=== PATIENT | male | born 1950 | race Caucasian/White ===

== ENCOUNTER 2024-08-30 09:27 | Inpatient (IN) | payer MEDICARE, MEDICAID, SELFPAY ==
[2024-08-30] VITALS (13 sets, daily range): BP systolic 89–126; BP diastolic 62–87; PULSE 98–123; RESP 18–23; TEMP 36.5–38.3; O2SAT 94–98; BMI 33.5; BMI 34.4
--- NOTE | 2024-08-30 09:40 | PC.NURSE ---
Patient to er via ems from [facility] with c/o n/vomiting since last pm, weakness. Currently patient alert and oriented x 3, GCS 15, skin warm dry and pink, patient denies abd. pain. Abd. soft, slight tenderness to left mid abd, chart up to be seen by er provider.
--- NOTE | 2024-08-30 09:48 | PD.EDADULT ---
ED General RME/HPI General Chief complaint: Nausea/Vomiting/Diarrhea Stated complaint: NAUSEA & VOMITING Time Seen by Provider: 08/30/24 09:46 Arrival date/time: 08/30/24 09:27 Limitations: no limitations RME / HPI RME / HPI narrative: DR. STROUD MAIN ED EVALUATION: 74 year old male with past medical history significant for sut-cxivagl-pmtlknilx diabetes mellitus (NIDDM), peripheral neuropathy, dementia, obesity, CAD s/p CABG from [facility], presents to the Emergency Department BIBA with complaints of nausea and vomiting onset yesterday. He has no particular complaints. He has limited history due to dementia. Related Data Home Medications ?Medication ?Instructions ?Recorded ?Confirmed carvedilol 3.125 mg tablet 3.125 mg PO BID 06/11/19 08/30/24 brimonidine 0.1 % eye drops 1 drp ophthalmic (eye) BID 02/25/22 08/30/24 (Alphagan P) duloxetine 30 mg capsule,delayed 30 mg PO QDAY 02/25/22 08/30/24 release (Cymbalta) latanoprost 0.005 % eye drops 1 drp ophthalmic (eye) QPM 02/25/22 08/30/24 sitagliptin phosphate 100 mg 100 mg PO QDAY 02/25/22 08/30/24 tablet (Januvia) timolol maleate 0.5 % eye drops 1 drp ophthalmic (eye) BID 02/25/22 08/31/24 metformin 1,000 mg tablet 1 tab PO BID 06/05/22 08/30/24 acetaminophen 325 mg tablet 325 mg PO Q6HR PRN Pain (Scale 10/02/22 08/31/24 (Tylenol) Score 1-3) aspirin 325 mg tablet 325 mg PO QDAY 10/02/22 08/30/24 bisacodyl 10 mg rectal suppository 10 mg ND QDAY PRN Constipation 10/02/22 08/31/24 (Dulcolax (bisacodyl)) docusate sodium 250 mg capsule 250 mg PO QDAY 10/02/22 08/30/24 gabapentin 800 mg tablet 800 mg PO TID 10/02/22 08/30/24 (Neurontin) hydrocodone 10 mg-acetaminophen 1 tab PO Q6H PRN Pain (Scale Score 10/02/22 08/30/24 325 mg tablet 4-6) hydroxyzine HCl 25 mg tablet 12.5 mg PO Q6H PRN Itching 10/02/22 08/30/24 magnesium hydroxide 400 mg/5 mL 30 ml PO Q72H PRN Constipation 10/02/22 08/30/24 oral suspension (Milk of Magnesia) ondansetron 4 mg disintegrating 4 mg PO Q6H PRN Nausea 10/02/22 08/31/24 tablet rosuvastatin 20 mg tablet 20 mg PO HS 10/02/22 08/31/24 sodium phosphates 19 gram-7 118 ml ND QDAY PRN Constipation 10/02/22 08/31/24 gram/118 mL enema (Fleet Enema) Previous Rx's ?Medication ?Instructions ?Recorded finasteride 5 mg tablet 5 mg PO QDAY #30 tabs 10/04/22 tamsulosin 0.4 mg capsule (Flomax) 0.4 mg PO QDAY #30 caps 10/04/22 Allergies Allergy/AdvReac Type Severity Reaction Status Date / Time No Known Allergies Allergy Verified 11/22/23 09:58 Review of Systems Review of Systems Systems Reviewed: All systems reviewed, normal except as documented Narrative Review of Systems: GEN: No fever, no chills, no weight loss EYES: No discharge, no visual changes, no pain HEENT: No ear pain, no congestion, no sore throat PULM: No shortness of breath, no cough, no congestion CV: No chest pain, no dyspnea on exertion, no palpitations GI: + nausea, + vomiting, no diarrhea, no pain, no constipation : No frequency, no urgency and no dysuria MUSC/SKEL: No joint pain, no back pain SKIN: No rash PSYCH: No hallucinations, no depression HEME/LYMPH: No easy bleeding or bruising tendencies NEURO: No weakness, no headache Past Medical History Past Medical History NEUROLOGIC: Positive Neurological Disorders and Peripheral Neuropathy CARDIAC: Positive Cardiac Disorders, Myocardial Infarction, Angina, Hypercholesterolemia and Hypertension MUSCULOSKELETAL: Positive Musculoskeletal Disorders, Arthritis and Degenerative Joint Disease ENT: Positive Glaucoma and Blind ENDOCRINE: Positive Endocrine Disorders and Diabetes Mellitus Type 2 (type 2) OTHER HISTORY: Positive Hospitalization, Chicken Pox and Measles Family History FAMILY HISTORY: Positive Family Cardiac Disorders and Family Cancer Surgical History SURGICAL: Positive Cardiac Surgery and Coronary Artery Bypass Graft Social History SMOKING STATUS: Never smoker SECOND HAND EXPOSURE: No SUBSTANCE USE: does not use ALCOHOL: Never ED Exam General Limitations: Present no limitations General appearance: Present alert, in no apparent distress and other (nontoxic, he is chronically ill, bedbound, with some atrophic contractions in his extremities) Head Head exam: Present atraumatic, normocephalic and normal inspection Eye Eye exam: Present normal appearance, PERRL and EOMI ENT ENT exam: Present normal oropharynx and mucous membranes dry Neck Neck exam: Present normal inspection, full ROM and trachea midline Chest Chest inspection: Present normal inspection and symmetric chest wall rise Respiratory Respiratory exam: Present normal lung sounds bilaterally Cardiovascular Cardiovascular exam: Present regular rate, normal rhythm and normal heart sounds Abdominal Exam Abdominal exam: Present soft, tenderness (mild diffuse, abdominal tenderness) and normal bowel sounds; Absent guarding or rebound Extremities Exam Extremities exam: Present other (bedbound, with some atrophic contractions in his extremities) Back Exam Back exam: Present normal inspection Neurological Exam Neurological exam: Present alert (at baseline) Psychiatric Psychiatric exam: Present normal affect and normal mood Skin Skin exam: Present warm, dry, intact and normal color Course Quality Measures Current suspected stage: severe sepsis Possible source: other (multi organ see below) Blood cultures ordered: yes Antibiotic ordered: Yes Pertinent labs: 08/30/24 10:00 Lactic Acid 1.7 mMol/L (0.4-2.0) Procalcitonin 8.57 H ng/ml (0.0-0.49) Severe sepsis due to multi organ injury, including his elevated, troponin for cardiac injury, elevated creatinine for renal injury. 0955: Sepsis alert initiated. Orders made at this time are congruent with ED Adult Sepsis Order List. Re-evaluation is to be completed. 1107: Fluids and antibiotics started. 1140: Sepsis reassessment performed consisting of lab review, vitals, physical exam including auscultation of heart, lungs, and visual evaluation of capillary refills, mucosal membranes and extremities. sepsis Orders Category Date Time Status Bedside COVID-19 Antigen Test NOW Care 08/30/24 09:53 Active Bedside Influenza A&B Antigen Test NOW Care 08/30/24 09:[address] Screening NOW Care 08/30/24 10:54 Active EKG (ED ONLY) *Do not use* NOW Care 08/30/24 09:54 Completed In and Out Catheter X1 Care 08/30/24 10:03 Completed Consult to Cardiology Stat Cons 11/17/24 12:[address] chest abdomen pelvis w Stat Exams 08/30/24 10:54 Completed EKG (ED Only) Stat Exams 08/30/24 09:54 Draft XR chest 1V Stat Exams 08/30/24 09:54 Completed Blood Culture (Lab) Stat Lab 08/30/24 10:08 Results CBC Stat Lab 08/30/24 10:00 Completed CMP [Comprehensive Metabolic Panel] Stat Lab 08/30/24 10:00 Completed Lactate (Lactic Acid) Stat Lab 08/30/24 10:00 Completed Procalcitonin Stat Lab 08/30/24 10:00 Completed RSV [Respiratory Syncytial Virus Ag] Stat Lab 08/30/24 11:45 Completed Troponin I Stat Lab 08/30/24 10:00 Completed Troponin I Stat Lab 08/30/24 12:30 Completed Urinalysis Stat Lab 08/30/24 10:10 Completed Acetaminophen Tab [Tylenol Tab] Med 08/30/24 10:19 Discontinued 650 mg PO X1 ONE Insulin Regular Med 08/30/24 10:57 Discontinued 10 unit SC X1 ONE Ondansetron Inj [Zofran Inj] Med 08/30/24 09:52 Discontinued 4 mg IV X1 ONE Piper/Tazo 3.375 gm [Zosyn] Med 08/30/24 10:53 Discontinued 3.375 gm in 50 ml IV X1 Sodium Chloride 0.9% 1000 ml [Ns] 1,000 ml Med 08/30/24 09:52 Discontinued IV 999 mls/hr Sodium Chloride 0.9% 1000 ml [Ns] 1,000 ml Med 08/30/24 10:34 Discontinued IV 999 mls/hr Sodium Chloride 0.9% 1000 ml [Ns] 1,000 ml Med 08/30/24 12:58 Discontinued IV 999 mls/hr Sodium Chloride 0.9% 500 ml [Ns] 500 ml Med 08/30/24 12:48 Discontinued IV 999 mls/hr Vital Signs Vital signs: Vital Signs Pulse Oximetry (%) 96 08/30/24 09:46 Oxygen Flow Rate 2 08/30/24 09:46 Procedures -ED EKG Interpretation #1: Date of EK08/30/24 Time of EK:10 Rate: 115 Interpretation: Interpreted by me Additional EKG comment: sinus tachycardia, rate 115, normal intervals, normal axis, no acute ST-T wave changes, no STEMI MDM Patient data External records reviewed:: [facility] previous records (Reviewed last urology note by Dr. Montalvo dated 11/24/23.) and EMS form Clinical information provided by:: patient and EMS Social determinants that could affect healthcare access:: housing ([facility]) Patient has the following chronic illnesses:: Auf-vrjhpct-awxfaphkl diabetes mellitus (NIDDM), peripheral neuropathy, dementia, obesity, CAD s/p CABG. How is presenting disease/condition affected by chronic disease/condition?: exacerbated by Evaluation data The following diagnostics were reviewed and interpreted by me:: lab results, radiology exam(s) and EKG tracing(s) Lab and/or radiology exams considered but not ordered:: none Interpretation Summary: Procedure(s): XR chest 1V Accession Number(s): [id number] cc: Erasmo Stroud MD; Mateusz Méndez MD~ Examination: AP chest single view Technique: AP portable semiupright chest single view Exam date and time: August 30, 2024 1017 hrs. Comparison October 01, 2022 Indications: Nausea vomiting beginning 3 days ago Findings: Mild enlargement cardiac contour Mild vascular congestion No lobar pneumonia no aspiration pneumonia No pulmonary edema Intact osseous structures Impression: Mild vascular congestion No aspiration pneumonia Dictated By: Mateusz Lopez MD Procedure(s): CT chest abdomen pelvis w Accession Number(s): [id number] cc: Salo Delacruz MD; Erasmo Stroud MD; Mateusz Méndez MD~ Examination: CT chest with intravenous contrast CT abdomen with intravenous contrast CT pelvis with intravenous contrast 2-D coronal and sagittal reconstructions Time of exam: September 09, 2024 1133 hrs. Indications: Chest pain shortness of breath sepsis nausea fever vomiting today Technique: Multiple axial images of the chest, abdomen and pelvis with intravenous mcontrast, 3.0 mm slice thickness. Images obtained post intravenous injection Isovue 60 cc Isovue-300 2-D sagittal and coronal reconstructions. Low dose protocols were performed. One or more of the following dose reduction techniques were used; mautomated exposure control, adjustment of the mA and/or KV according to patient size, use of iterative reconstruction technique. Findings: No thoracic aortic aneurysmal dilatation Pulmonary artery opacification is poor Heavy calcification left anterior descending coronary artery No paratracheal tracheobronchial or bronchopulmonary adenopathy Mild vascular congestion Mild pneumonia at the left base Minimal bilateral pleural fluid Fatty infiltration throughout the liver Contracted gallbladder with gallstones No splenic or pancreatic or adrenal mass Atrophic kidneys Aorta normal size No bowel obstruction No pericecal inflammatory change No diverticulitis Urinary bladder wall shows thickening and there is pericystic inflammatory change Normal seminal vesicles No significant prostatomegaly Significant osteopenia Impression: No thoracic aortic aneurysmal dilatation Mild pneumonia left base Diffuse fatty infiltration throughout the liver Cholelithiasis, negative for cholecystitis No CT findings of appendicitis bowel obstruction or diverticulitis No abdominal or pelvic abscess Dictated By: Mateusz Méndez MD Medications Medications considered but not ordered:: none Medication administrations:: Medication Administration History Acetaminophen (Acetaminophen 325 Mg Tablet) 650 mg PO Q6H PRN PRN Reason: pain 1-3 and Fever >100.4 Stop: 09/29/24 13:20 Last Admin: 08/30/24 21:41 Dose: 650 mg Documented By: WB Hydrocodone Bitart/Acetaminophen (Hydrocodone/Apap 5/325 Tablet) 1 tab PO Q4HR PRN PRN Reason: PAIN SCALE 4-10(Mod-Sev Stop: 09/04/24 13:20 Aspirin (Aspirin Ec 81 Mg Tabec) 81 mg PO QDAY RASHID Stop: 09/30/24 08:59 Last Admin: 09/01/24 08:41 Dose: 81 mg Documented By: Admin: 08/31/24 08:54 Dose: 81 mg Documented By: R Atorvastatin Calcium (Atorvastatin Calcium 20 Mg Tablet) 40 mg PO HS RASHID Stop: 09/29/24 20:59 Last Admin: 08/31/24 20:33 Dose: 40 mg Documented By: Admin: 08/30/24 21:31 Dose: 40 mg Documented By: CHRISTA Azithromycin (Azithromycin 250 Mg Tablet) 500 mg PO QDAY@1400 RASHID Stop: 09/06/24 13:59 Last Admin: 08/31/24 13:42 Dose: 500 mg Documented By: Admin: 08/30/24 14:02 Dose: 500 mg Documented By: LANETTE Dextrose (Dextrose 50%-Water Inj 50 Ml Syringe) 25 ml IV Q15MIN PRN PRN Reason: BG 50-70 responsive npo pt Stop: 09/29/24 13:20 Dextrose (Dextrose 50%-Water Inj 50 Ml Syringe) 50 ml IV Q15MIN PRN PRN Reason: BG <50 OR BG <70 & pt unresponsive Stop: 09/29/24 13:20 Glucagon (Glucagon Inj 1 Mg Vial) 1 mg IM Q15MIN PRN PRN Reason: BG <70, and no IV access Heparin Sodium/Dextrose (Heparin In D5w Ivpb) 25,000 unit in 250 mls @ 10 mls/hr IV .Q24H RASHID; Protocol Stop: 09/13/24 13:44 Last Admin: 09/01/24 06:43 Dose: 14.47 units/kg/hr, 17.131 mls/hr Documented By: CECILIO Co-signed By: ARIE Titration: 09/01/24 06:43 Dose: Infused Documented By: CECILIO Co-signed By: ARIE Titration: 09/01/24 02:23 Dose: 14.47 units/kg/hr, 17.131 mls/hr Documented By: ARIE Co-signed By: ZP Titration: 08/31/24 18:15 Dose: 14.47 units/kg/hr, 17.131 mls/hr Documented By: R Co-signed By: MICHELLE Admin: 08/31/24 11:44 Dose: 12.47 units/kg/hr, 14.763 mls/hr Documented By: CECILIO Co-signed By: DAVID Titration: 08/31/24 11:41 Dose: Infused Documented By: CECILIO Co-signed By: DAVID Titration: 08/31/24 04:20 Dose: 12.47 units/kg/hr, 14.763 mls/hr Documented By: CHRISTA Co-signed By: Titration: 08/30/24 21:34 Dose: 10.47 units/kg/hr, 12.395 mls/hr Documented By: CHRISTA Co-signed By: Admin: 08/30/24 14:39 Dose: 8.447 units/kg/hr, 10 mls/hr Documented By: LANETTE Co-signed By: EF Ceftriaxone Sodium/Dextrose (Rocephin/D5w 1gm Iv Premix) 50 mls @ 100 mls/hr IV QDAY@1400 RASHID Stop: 09/06/24 13:43 Last Admin: 08/31/24 13:43 Dose: 100 mls/hr Documented By: Infusion: 08/30/24 14:40 Dose: Infused Documented By: Admin: 08/30/24 14:03 Dose: 100 mls/hr Documented By: LANETTE Insulin Human Lispro (Insulin Lispro (Admelog) 1 Unit/0.01 Ml Unit) 0 unit SC ACHS RASHID; Protocol Stop: 09/29/24 16:59 Last Admin: 09/01/24 07:35 Dose: 2 unit Documented By: CECILIO Co-signed By: CHRISTI Admin: 08/31/24 20:39 Dose: 3 unit Documented By: ARIE Co-signed By: SANDER Admin: 08/31/24 16:33 Dose: 2 unit Documented By: CECILIO Co-signed By: PP Admin: 08/31/24 11:49 Dose: 3 unit Documented By: CECILIO Co-signed By: DAVID Admin: 08/31/24 07:44 Dose: 2 unit Documented By: CECILIO Co-signed By: DA Admin: 08/30/24 21:31 Dose: 3 unit Documented By: CHRISTA Co-signed By: Admin: 08/30/24 18:12 Dose: 4 unit Documented By: CHRISTI Co-signed By: CECILIO Ondansetron HCl (Ondansetron Inj 2 Mg/Ml Inj 2 Ml) 4 mg IV Q6H PRN; Protocol PRN Reason: NAUSEA OR VOMITING Stop: 09/29/24 13:20 Last Admin: 09/01/24 07:58 Dose: 4 mg Documented By: CECILIO Sennosides (Senna Tablet) 1 tab PO QDAY PRN; Protocol PRN Reason: constipation Stop: 09/29/24 13:20 Discontinued Medications Acetaminophen (Acetaminophen 325 Mg Tablet) 650 mg PO X1 ONE Stop: 08/30/24 10:20 Last Admin: 08/30/24 10:31 Dose: 650 mg Documented By: ARLIN Heparin Sodium (Porcine) (Heparin Sod Inj 5000 Unit/Ml Vial) 5,000 unit SC Q8HR [facility] Stop: 09/13/24 13:59 Heparin Sodium (Porcine) (Heparin Sod Inj 5000 Unit/Ml Vial) 4,000 unit IV X1 ONE; Protocol Stop: 08/30/24 13:41 Last Admin: 08/30/24 14:38 Dose: 4,000 unit Documented By: LANETTE Co-signed By: ARLIN Heparin Sodium (Porcine) (Heparin Sod Inj 5000 Unit/Ml Vial) 2,000 unit IVP X1 [facility] Stop: 08/31/24 02:00 Last Admin: 08/30/24 21:32 Dose: 2,000 unit Documented By: CHRISTA Co-signed By: Heparin Sodium (Porcine) (Heparin Sod Inj 5000 Unit/Ml Vial) 2,000 unit IVP X1 ONE Stop: 08/31/24 04:08 Last Admin: 08/31/24 04:20 Dose: 2,000 unit Documented By: CHRISTA Co-signed By: Heparin Sodium (Porcine) (Heparin Sod Inj 5000 Unit/Ml Vial) 2,000 unit IVP X1 ONE Stop: 08/31/24 18:10 Last Admin: 08/31/24 18:15 Dose: 2,000 unit Documented By: CECILIO Co-signed By: MICHELLE Sodium Chloride (Ns) 1,000 mls @ 999 mls/hr IV .Q1H1M ONE Stop: 08/30/24 10:52 Last Infusion: 08/30/24 11:28 Dose: Infused Documented By: Admin: 08/30/24 10:05 Dose: 999 mls/hr Documented By: LANETTE Sodium Chloride (Ns) 1,000 mls @ 999 mls/hr IV .Q1H1M ONE Stop: 08/30/24 11:34 Last Infusion: 08/30/24 12:30 Dose: Infused Documented By: Admin: 08/30/24 11:07 Dose: 999 mls/hr Documented By: LANETTE Piperacillin/Tazobactam/Dextrose (Zosyn) 3.375 gm in 50 mls @ 100 mls/hr IV X1 ONE Stop: 08/30/24 11:22 Last Infusion: 08/30/24 12:11 Dose: Infused Documented By: Admin: 08/30/24 11:07 Dose: 100 mls/hr Documented By: LANETTE Sodium Chloride (Ns) 500 mls @ 999 mls/hr IV .Q31M ONE Stop: 08/30/24 13:18 Last Infusion: 08/30/24 13:42 Dose: Infused Documented By: Admin: 08/30/24 12:51 Dose: 999 mls/hr Documented By: LANETTE Sodium Chloride (Ns) 1,000 mls @ 999 mls/hr IV .Q1H1M ONE Stop: 08/30/24 13:58 Last Infusion: 08/30/24 13:41 Dose: Infused Documented By: Admin: 08/30/24 13:01 Dose: 999 mls/hr Documented By: LANETTE Sodium Chloride (Ns) 1,000 mls @ 100 mls/hr IV .Q10H ONE Stop: 08/30/24 23:29 Last Admin: 08/30/24 13:46 Dose: 100 mls/hr Documented By: LNAETTE Azithromycin 500 mg/ Sodium (Chloride) 250 mls @ 250 mls/hr IV QDAY RASHID Stop: 09/06/24 13:43 Last Admin: 08/30/24 14:46 Dose: Not Given Documented By: LANETTE Non-Admin Reason: Cancelled by Provider Magnesium Sulfate (Magnesium Sulfate Ivpb) 2 gm in 50 mls @ 25 mls/hr IV X1 ONE Stop: 08/31/24 15:25 Last Admin: 08/31/24 15:11 Dose: 25 mls/hr Documented By: CECILIO Insulin Human Regular (Insulin Hum Regular 1 Unit/0.01 Ml (Per Unit)) 10 unit SC X1 ONE Stop: 08/30/24 10:58 Last Admin: 08/30/24 11:08 Dose: 10 unit Documented By: LANETTE Co-signed By: ARLIN Insulin Human Regular (Insulin Hum Regular 1 Unit/0.01 Ml (Per Unit)) 10 unit IV X1 ONE Stop: 08/30/24 14:59 Last Admin: 08/30/24 16:04 Dose: 10 unit Documented By: LANETTE Co-signed By: GM Ondansetron HCl (Ondansetron Inj 2 Mg/Ml Inj 2 Ml) 4 mg IV X1 ONE; Protocol Stop: 08/30/24 09:53 Last Admin: 08/30/24 10:05 Dose: 4 mg Documented By: LANETTE see above Consultations Consultation(s) initiated? (list below): Yes Consultation #1 (Physician, Specialty, Details): Cardiology, discussed test HPI, PMHx, lab, radiology results and/or management with Dr. Garcia. We discussed the elevated troponin and he feels it is primarily due to the sepsis, no heparin right now. Will consult an admission to the hospitalist. Time: 12:30 Consultation #2 (Physician, Specialty, Details): Discussed test HPI, PMHx, lab, radiology results and/or management with hospitalist Dr. Nielsen and team. Will admit for further evaluation and management. Accepts patient for admission. Time: 13:00 Diagnosis Differential Diagnosis ED Complaint MDM: Gastritis, GERD, peptic ulcer disease, gastroenteritis Most likely diagnosis given after review of the tests above:: As noted below. Admission Indicated Admission indicated?: indicated Explain why admission is indicated or not indicated:: Diagnoses meet admission criteria. Admission Request Was there a request for admission?: Yes Admission Attestation Admission request attestation: Discussed case with [] from Hospitalist service regarding admission. Discussed patients ED course, exam findings, labs, and radiology results. The Hospitalist [agrees,declines] to accept the patient for admission. Disposition Plan Disposition Plan: Admit Medical Decision Making Differential Diagnosis Differential Diagnosis: Gastritis, GERD, peptic ulcer disease, gastroenteritis Lab Data 09/01/24 05:35 09/01/24 05:35 Labs: Lab Results 08/30/24 08/30/24 08/30/24 Range/Units 10:00 10:10 11:45 WBC 16.5 H (3.8-10.6) Thou/mm3 RBC 4.68 (4.50-5.90) Miln/mm3 Hgb 13.9 (13.5-16.0) g/dL Hct 41.1 (41.0-53.0) % MCV 88 (80-100) fL MCH 29.7 (25.0-35.0) pg MCHC 33.8 (31.0-37.0) g/dl RDW Std Deviation 46.5 H (35.1-43.9) fL Plt Count 208 (140-440) Thou/mm3 Neut % (Auto) 88 H (37-80) % Lymph % (Auto) 5 L (10-50) % [place] % (Auto) 7 (0-12) % Eos % (Auto) 0 (0-10) % Baso % (Auto) 0 (0-2.5) % Neut # (Auto) 14.5 H (1.8-7.7) Thou/mm3 Lymph # (Auto) 0.7 L (1.0-4.8) Thou/mm3 [place] # (Auto) 1.2 H (0.0-0.8) Thou/mm3 Eos # (Auto) 0.0 (0.0-0.5) Thou/mm3 Baso # (Auto) 0.0 (0.0-0.2) Thou/mm3 Immature Gran # (Auto) 0.10 H (0.00-0.00) Thou/mm3 Absolute Nucleated RBC 0.00 (0.00-0.00) Thou/mm3 Immature Gran % 1 H (0-0) % Nucleated RBC % 0 (0) /100 WBC PT 12.4 H (9.0-12.2) Seconds INR 1.1 (0.9-1.3) APTT 33.3 (22.0-36.0) Seconds Sodium 133 L (136-145) mMol/L Potassium 5.1 (3.4-5.1) mMol/L Chloride 102 (98-107) mMol/L Carbon Dioxide 23.9 (20.0-31.0) mMol/L Anion Gap 7 (7-16) BUN 29 H (9-23) mg/dL Creatinine 1.6 H (0.6-1.3) mg/dL Estim Creat Clear Calc 57.1 L (>60) mL/min eGFR 45 L (60 - ) See Note BUN/Creatinine Ratio 18 (12-20) Ratio Glucose 460 H* (74-106) mg/dL Calculated Osmolality 292 (275-295) Lactic Acid 1.7 (0.4-2.0) mMol/L Calcium 9.3 (8.3-10.6) mg/dL Corrected Calcium 9.3 (8.5-10.1) mg/dL Total Bilirubin 0.8 (0.3-1.2) mg/dL AST 23 (0-34) U/L ALT 7 L (10-49) U/L Alkaline Phosphatase 81 (46-116) U/L Troponin I 3.955 H* (0.0-0.045) ng/mL Total Protein 7.5 (5.7-8.2) gm/dL Albumin 4.2 (3.4-4.8) gm/dL Globulin 3.3 (2.3-3.5) gm/dL Albumin/Globulin Ratio 1.3 (1.2-2.2) Procalcitonin 8.57 H (0.0-0.49) ng/ml Ur Collection Type Catheter Urine Color Yellow (Lt Yel-Yel) Urine Clarity Turbid A (Clear/Hazy) Urine pH 6.0 (5.0-7.0) Ur Specific [place] 1.020 (1.001-1.035) Urine Protein 2+ A (Neg - Trace) Urine Glucose (UA) 4+ A (Negative) Urine Ketones 1+ A (Negative) Urine Blood 2+ A (Negative) Urine Nitrite Negative (Negative) Urine Bilirubin Negative (Negative) Urine Urobilinogen (Auto) 3.0 (0.0-1.0) mg/dL Ur Leukocyte Esterase Positive (Negative) Urine RBC 20 H (0-3) /hpf Urine WBC 528 H (0-5) /hpf Ur Squamous Epith Cells 1 (0-5) /hpf Amorphous Crystals Present A (Absent) Urine Bacteria 4+ A (None) RSV Rapid Negative (Negative) 08/30/24 Range/Units 12:30 WBC (3.8-10.6) Thou/mm3 RBC (4.50-5.90) Miln/mm3 Hgb (13.5-16.0) g/dL Hct (41.0-53.0) % MCV (80-100) fL MCH (25.0-35.0) pg MCHC (31.0-37.0) g/dl RDW Std Deviation (35.1-43.9) fL Plt Count (140-440) Thou/mm3 Neut % (Auto) (37-80) % Lymph % (Auto) (10-50) % [place] % (Auto) (0-12) % Eos % (Auto) (0-10) % Baso % (Auto) (0-2.5) % Neut # (Auto) (1.8-7.7) Thou/mm3 Lymph # (Auto) (1.0-4.8) Thou/mm3 [place] # (Auto) (0.0-0.8) Thou/mm3 Eos # (Auto) (0.0-0.5) Thou/mm3 Baso # (Auto) (0.0-0.2) Thou/mm3 Immature Gran # (Auto) (0.00-0.00) Thou/mm3 Absolute Nucleated RBC (0.00-0.00) Thou/mm3 Immature Gran % (0-0) % Nucleated RBC % (0) /100 WBC PT (9.0-12.2) Seconds INR (0.9-1.3) APTT (22.0-36.0) Seconds Sodium (136-145) mMol/L Potassium (3.4-5.1) mMol/L Chloride (98-107) mMol/L Carbon Dioxide (20.0-31.0) mMol/L Anion Gap (7-16) BUN (9-23) mg/dL Creatinine (0.6-1.3) mg/dL Estim Creat Clear Calc (>60) mL/min eGFR (60 - ) See Note BUN/Creatinine Ratio (12-20) Ratio Glucose (74-106) mg/dL Calculated Osmolality (275-295) Lactic Acid (0.4-2.0) mMol/L Calcium (8.3-10.6) mg/dL Corrected Calcium (8.5-10.1) mg/dL Total Bilirubin (0.3-1.2) mg/dL AST (0-34) U/L ALT (10-49) U/L Alkaline Phosphatase (46-116) U/L Troponin I 8.562 H* D (0.0-0.045) ng/mL Total Protein (5.7-8.2) gm/dL Albumin (3.4-4.8) gm/dL Globulin (2.3-3.5) gm/dL Albumin/Globulin Ratio (1.2-2.2) Procalcitonin (0.0-0.49) ng/ml Ur Collection Type Urine Color (Lt Yel-Yel) Urine Clarity (Clear/Hazy) Urine pH (5.0-7.0) Ur Specific [place] (1.001-1.035) Urine Protein (Neg - Trace) Urine Glucose (UA) (Negative) Urine Ketones (Negative) Urine Blood (Negative) Urine Nitrite (Negative) Urine Bilirubin (Negative) Urine Urobilinogen (Auto) (0.0-1.0) mg/dL Ur Leukocyte Esterase (Negative) Urine RBC (0-3) /hpf Urine WBC (0-5) /hpf Ur Squamous Epith Cells (0-5) /hpf Amorphous Crystals (Absent) Urine Bacteria (None) RSV Rapid (Negative) Critical Care Time Critical Care Time Critical Care Time: Yes Total Critical Care Time (min.): 60 Attestation: The high probability of sudden, clinically significant deterioration in the patient?s condition required the highest level of my preparedness to intervene urgently. The services I provided to this patient were to treat and/or prevent clinically significant deterioration. Services included the following: chart data review, reviewing nursing notes and/or old charts, documentation time, cycle consultant collaboration regarding findings and treatment options, medication orders and management, direct patient care, vital sign assessments and ordering, interpreting and reviewing diagnostic studies and lab tests. Aggregate critical care time includes only time during which I was engaged in work directly related to the patient?s care, as described above, whether at bedside or elsewhere in the Emergency Department. It did not include time spent performing other reported procedures or the services of residents, students, nurses or physician assistants. Discharge Plan Plan Patient Disposition: Admit Acute Care w/in Hospital Problem List Clinical Impression: Acute UTI
--- NOTE | 2024-08-30 09:52 | PC.NURSE ---
Dr. Villa at bedside.
--- NOTE | 2024-08-30 09:54 | EKG_ITS ---
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1950 Requested By: Erasmo Villa Order Number: [id number] Reading MD: Erasmo Villa Measurements Intervals [place] Rate: 115 P: 59 NE: 203 QRS: -31 QRSD: 94 T: 97 QT: 357 QTc: 495 Interpretive Statements SINUS TACHYCARDIA LOW QRS VOLTAGE IN PRECORDIAL LEADS [QRS DEFLECTION < 1.0 mV IN CHEST LEADS] POSSIBLE ANTERIOR MYOCARDIAL INFARCTION , OF INDETERMINATE AGE [30 ms Q WAVE IN V3/V4, OR R < 0.2 mV IN V4] INFERIOR MYOCARDIAL INFARCTION , OF INDETERMINATE AGE [40+ ms Q WAVE AND/OR ST/T ABNORMALITY IN II/aVF] Compared to ECG 06/04/2022 16:46:51 Sinus rhythm no longer present Myocardial infarct finding still present /store/S0/[id number]
--- NOTE | 2024-08-30 09:54 | XR_ITS ---
Examination: AP chest single view Technique: AP portable semiupright chest single view Exam date and time: August 30, 2024 1017 hrs. Comparison October 01, 2022 Indications: Nausea vomiting beginning 3 days ago Findings: Mild enlargement cardiac contour Mild vascular congestion No lobar pneumonia no aspiration pneumonia No pulmonary edema Intact osseous structures Impression: Mild vascular congestion No aspiration pneumonia
[2024-08-30] MEDS: ONDANSETRON INJ 2 MG/ML INJ 2 ML 4 MG IV (10:05)
[2024-08-30] MEDS: SODIUM CHLORIDE 0.9% 1000 ML 1,000 ML 999 ML IV ×3 (10:05→13:01)
[2024-08-30 10:15] LABS: Lactate (Lactic Acid) 1.7 mMol/L (0.4-2.0)
[2024-08-30 10:18] LABS: Basophils % (Auto) 0 % (0-2.5); Eosinophils % (Auto) 0 % (0-10); Hematocrit 41.1 % (41.0-53.0); Hemoglobin 13.9 g/dL (13.5-16.0); Immature Granulocytes % (Auto) 1 % (0-0); Lymphocytes # (Auto) 0.7 Thou/mm3 (1.0-4.8); Lymphocytes % (Auto) 5 % (10-50); Mean Corpuscular HGB Conc 33.8 g/dl (31.0-37.0); Mean Corpuscular Hemoglobin 29.7 pg (25.0-35.0); Mean Corpuscular Volume 88 fL (80-100); Monocytes # (Auto) 1.2 Thou/mm3 (0.0-0.8); Monocytes % (Auto) 7 % (0-12); Neutrophils # (Auto) 14.5 Thou/mm3 (1.8-7.7); Neutrophils % (Auto) 88 % (37-80); Nucleated Red Blood Cell % 0 /100 WBC (0); Platelet Count 208 Thou/mm3 (140-440); RDW Standard Deviation 46.5 fL (35.1-43.9); Red Blood Count 4.68 Miln/mm3 (4.50-5.90); White Blood Count 16.5 Thou/mm3 (3.8-10.6)
[2024-08-30 10:22] LABS: Collection Type, Urine Catheter
[2024-08-30] MEDS: ACETAMINOPHEN 325 MG TABLET 650 MG PO ×2 (10:31→21:41)
[2024-08-30 10:40] LABS: Amorphous Crystals,Urine Present (Absent); Bacteria,Urine 4+; Bilirubin,Urine Negative (Negative); Blood,Urine 2+ (Negative); Clarity,Urine Turbid (Clear/Hazy); Color,Urine Yellow (Lt Yel-Yel); Glucose, Urine 4+ (Negative); Ketones,Urine 1+ (Negative); Leukocyte Esterase,Urine Positive (Negative); Nitrite,Urine Negative (Negative); Protein,Urine 2+ (Neg - Trace); RBC,Urine 20 /hpf (0-3); Squamous Epithelial Cell,Urine 1 /hpf (0-5); WBC,Urine 528 /hpf (0-5)
[2024-08-30 10:49] LABS: Alanine Aminotransferase 7 U/L (10-49); Albumin, Serum 4.2 gm/dL (3.4-4.8); Albumin/Globulin Ratio 1.3 (1.2-2.2); Alkaline Phosphatase 81 U/L (46-116); Anion Gap 7 (7-16); Aspartate Amino Transferase 23 U/L (0-34); BUN/Creatinine Ratio 18 Ratio (12-20); Bilirubin,Total 0.8 mg/dL (0.3-1.2); Blood Urea Nitrogen 29 mg/dL (9-23); Calcium 9.3 mg/dL (8.3-10.6); Calcium (Corrected) 9.3 mg/dL (8.5-10.1); Carbon Dioxide 23.9 mMol/L (20.0-31.0); Chloride 102 mMol/L (98-107); Creatinine (Component) 1.6 mg/dL (0.6-1.3); Estimated Creatinine Clearance 57.1 mL/min (>60); Globulin 3.3 gm/dL (2.3-3.5); Osmolality,Calculated 292 (275-295); Potassium 5.1 mMol/L (3.4-5.1); Procalcitonin 8.57 ng/ml (0.0-0.49); Sodium 133 mMol/L (136-145); Total Protein 7.5 gm/dL (5.7-8.2); eGFR 45 See Note
[2024-08-30 10:50] LABS: Troponin I 3.955 ng/mL (0.0-0.045)
[2024-08-30 10:51] LABS: Glucose 460 mg/dL (74-106)
--- NOTE | 2024-08-30 10:54 | XR_ITS ---
Examination: CT chest with intravenous contrast CT abdomen with intravenous contrast CT pelvis with intravenous contrast 2-D coronal and sagittal reconstructions Time of exam: September 09, 2024 1133 hrs. Indications: Chest pain shortness of breath sepsis nausea fever vomiting today CTDI: vol (mGy) : 20.4 DLP: (mGycm): 1597 Technique: Multiple axial images of the chest, abdomen and pelvis with intravenous contrast, 3.0 mm slice thickness. Images obtained post intravenous injection Isovue 60 cc Isovue-300 2-D sagittal and coronal reconstructions. Low dose protocols were performed. One or more of the following dose reduction techniques were used; automated exposure control, adjustment of the mA and/or KV according to patient size, use of iterative reconstruction technique. Findings: No thoracic aortic aneurysmal dilatation Pulmonary artery opacification is poor Heavy calcification left anterior descending coronary artery No paratracheal tracheobronchial or bronchopulmonary adenopathy Mild vascular congestion Mild pneumonia at the left base Minimal bilateral pleural fluid Fatty infiltration throughout the liver Contracted gallbladder with gallstones No splenic or pancreatic or adrenal mass Atrophic kidneys Aorta normal size No bowel obstruction No pericecal inflammatory change No diverticulitis Urinary bladder wall shows thickening and there is pericystic inflammatory change Normal seminal vesicles No significant prostatomegaly Significant osteopenia Impression: No thoracic aortic aneurysmal dilatation Mild pneumonia left base Diffuse fatty infiltration throughout the liver Cholelithiasis, negative for cholecystitis No CT findings of appendicitis bowel obstruction or diverticulitis No abdominal or pelvic abscess
[2024-08-30] MEDS: PIPER/TAZO 3.375 GM 3.375 GM/50 ML BAG IV (11:07)
[2024-08-30] MEDS: INSULIN HUM REGULAR 1 UNIT/0.01 ML (PER UNIT) 10 UNIT SC (11:08)
--- NOTE | 2024-08-30 11:32 | PC.NURSE ---
Patient gone to ct via michi on with tech
[2024-08-30] MEDS: SODIUM CHLORIDE 0.9% 500 ML 500 ML 999 ML IV (12:51)
--- NOTE | 2024-08-30 12:58 | PC.NURSE ---
Per Dr. Villa, Dr. Nielsen to consult for admission and Dr. Torres, ccnp will consult as well.
[2024-08-30 13:03] LABS: Respiratory Syncytial Virus Ag Negative (Negative)
[2024-08-30 13:20] LABS: Troponin I 8.562 ng/mL (0.0-0.045)
--- NOTE | 2024-08-30 13:28 | ESHP_ITS ---
<Statement entered by Len Roman MD - 08/30/24 16:20> Senior Resident Attestation: I supervised/discussed management plan with internal corrosion specialist physician Dr. Byrd, and was involved in the care of this patient. I personally saw and examined the patient and discussed the assessment and plan with the entire medicine team, including my attending. I agree with the assessment and plan as documented. Patient is 74 years old male with past medical history of type 2 diabetes, CAD s/p PCI, triple-vessel occlusive disease, hyperlipidemia, hypertension, dementia presented to the ED due to nausea and vomiting. Chest CT showed early pneumonia and UA was consistent with UTI. Patient met SIRS criteria for sepsis. Patient was given 3.5 L of IVF was admitted for further management and started on ceftriaxone and azithromycin and maintenance IV fluids. His troponin on admission was 3.9 and then went up to 8, cardiology was consulted and patient was started on heparin drip, will trend troponin. Patient's care was discussed with attending physician, Dr. Nielsen. Len Roman MD PGY-2. Documentation for date of: 08/30/24 HPI History of Present Illness Chief complaint: Nausea and vomit History of present illness: 74-year-old male with past medical history of DM2, glaucoma, triple-vessel disease (s/p stents 2019), hyperlipidemia, dementia, and hypertension was admitted to the hospital after coming to the ED from [facility] due to complaints of nausea and vomiting which started last night. On assessment patient mentioned that he vomited last night and that he has been having some subjective fever, chills and shortness of breath, but denied any chest pain, burning sensation urination, or blood in the stools. Patient did not have much complaints other than nausea and vomiting, but on assessment he did have some suprapubic tenderness yet he denied any changes in urine or burning sensation during urination. Patient was also poor historian. ED course: Initially came in tachycardic, febrile, and hypotensive. Initial labs were relevant for leukocytosis, MART, hyperglycemia, temp anemia, elevated procalcitonin, and UTI. Initial imaging included chest x-ray which did not show any pneumonia, but this showed mild vascular congestion. Additional chest/abdomen/pelvis CT showed heavy calcification of LAD, mild pneumonia of left base, minimal bilateral pleural fluid, atrophic kidneys, cholelithiasis, and urinary bladder wall thickening. EKG showed sinus tachycardia. Patient received 3.5 L boluses, one-time dose Zosyn, one-time dose acetaminophen, and 10 units of insulin in the ER. ER physician spoke with helicopter dispatcher Dr. Garcia. PMH: As above Social Hx: Denies any alcohol, smoking, drugs Meds: Medical reconciliation pending Review of Systems Review of Systems Narrative Review of Systems: Constitutional: Denies sweats, Denies weight loss/gain, Admits fever, Admits chills. HEENT: Denies hearing loss, Denies ear pain, Denies postnasal drip, Denies double vision, Denies blurry vision. Respiratory: Admits shortness of breath, Denies cough, Denies wheezing. Cardiovascular: Denies chest pain, Denies palpitations, Denies sudden loss of consciousness. GI: Denies blood in stool, Denies constipation, Denies abdominal pain, Denies difficulty swallowing, Admits nausea and vomit. : Denies urinary incontinence, Denies pain while urinating, Denies increased urinary frequency. MSK: Denies joint pain, Denies joint swelling, Denies numbness. Skin: Denies rash, Denies itching, Denies easy bruising. Neuro: Denies headaches, Denies dizziness, Denies seizures. Past Medical History Past Medical History NEUROLOGIC: Positive Neurological Disorders and Peripheral Neuropathy CARDIAC: Positive Cardiac Disorders, Myocardial Infarction, Angina, Hypercholesterolemia and Hypertension MUSCULOSKELETAL: Positive Musculoskeletal Disorders, Arthritis and Degenerative Joint Disease ENT: Positive Glaucoma and Blind ENDOCRINE: Positive Endocrine Disorders and Diabetes Mellitus Type 2 (type 2) OTHER HISTORY: Positive Hospitalization, Chicken Pox and Measles Family History FAMILY HISTORY: Positive Family Cardiac Disorders and Family Cancer Surgical History SURGICAL: Positive Cardiac Surgery and Coronary Artery Bypass Graft Social History SMOKING STATUS: Never smoker SECOND HAND EXPOSURE: No SUBSTANCE USE: does not use ALCOHOL: Never Exam Vital Signs Temp Pulse Resp BP Pulse Ox O2 Del Method O2 Flow Rate 98.4 F 100 23 H 89/62 L 98 Room Air 2 08/30/24 11:31 08/30/24 12:30 08/30/24 12:30 08/30/24 12:30 08/30/24 12:30 08/30/24 12:30 08/30/24 11:31 Narrative Exam General: A/O x3, no acute distress, obese Eyes: PERRL, EOMI. Anicteric, vision impaired. Ears: No ear pain, no ear discharge, Hearing grossly intact. Nose: No nasal discharge. Mouth/Throat: Dry mucous membranes, no redness, no lesions. Neck: short neck , non-tender, no cervical lymphadenopathy. Lungs: Clear LUPILLO to auscultation and percussion, No accessory muscle use. Cardio: Normal S1/S2, regular rhythm, no murmurs, no JVD Abdomen: Soft, but distended, no palpable masses, peristalsis present, no guarding or rebound. Extremities: Symmetrical, no significant deformities, 1+ peripheral edema , non-tender, peripheral pulses presents. Skin: No rashes, no lesions, warm to touch. Neuro: No focal neurological deficits. able to follow commands, able to move all extremities. Strength in LUPILLO LE 3/5. Psych:flat effect Results: Labs 09/03/24 08:25 09/03/24 08:25 Labs: Short CBC 08/30/24 Range/Units 10:00 WBC 16.5 H (3.8-10.6) Thou/mm3 Hgb 13.9 (13.5-16.0) g/dL Hct 41.1 (41.0-53.0) % Plt Count 208 (140-440) Thou/mm3 BMP 08/30/24 10:00 Sodium 133 L Potassium 5.1 Chloride 102 Carbon Dioxide 23.9 BUN 29 H Creatinine 1.6 H Glucose 460 H* Calcium 9.3 Cardiac Enzymes 08/30/24 08/30/24 Range/Units 10:00 12:30 Troponin I 3.955 H* 8.562 H* D (0.0-0.045) ng/mL Liver Function 08/30/24 Range/Units 10:00 Total Bilirubin 0.8 (0.3-1.2) mg/dL AST 23 (0-34) U/L ALT 7 L (10-49) U/L Alkaline Phosphatase 81 (46-116) U/L Albumin 4.2 (3.4-4.8) gm/dL Urine 08/30/24 Range/Units 10:10 Urine Color Yellow (Lt Yel-Yel) Urine Clarity Turbid A (Clear/Hazy) Urine pH 6.0 (5.0-7.0) Ur Specific [place] 1.020 (1.001-1.035) Urine Protein 2+ A (Neg - Trace) Urine Glucose (UA) 4+ A (Negative) Quality Measures Quality Measures sepsis Current suspected stage: sepsis Possible source: other (multi organ see below) Blood cultures ordered: yes Antibiotic ordered: Yes Advance care planning discussed with:: patient Medications Home Medications and Allergies Home Medications ?Medication ?Instructions ?Recorded ?Confirmed ?Type brimonidine 0.1 % eye drops 1 drp ophthalmic (eye) BID 02/25/22 08/30/24 History (Alphagan P) duloxetine 30 mg capsule,delayed 30 mg PO QDAY 02/25/22 08/30/24 History release (Cymbalta) latanoprost 0.005 % eye drops 1 drp ophthalmic (eye) QPM 02/25/22 08/30/24 History sitagliptin phosphate 100 mg 100 mg PO QDAY 02/25/22 08/30/24 History tablet (Januvia) timolol maleate 0.5 % eye drops 1 drp ophthalmic (eye) BID 02/25/22 08/31/24 History metformin 1,000 mg tablet 1 tab PO BID 06/05/22 08/30/24 History acetaminophen 325 mg tablet 325 mg PO Q6HR PRN Pain (Scale 10/02/22 08/31/24 History (Tylenol) Score 1-3) bisacodyl 10 mg rectal suppository 10 mg DC QDAY PRN Constipation 10/02/22 08/31/24 History (Dulcolax (bisacodyl)) docusate sodium 250 mg capsule 250 mg PO QDAY 10/02/22 08/30/24 History gabapentin 800 mg tablet 800 mg PO TID 10/02/22 08/30/24 History (Neurontin) hydrocodone 10 mg-acetaminophen 1 tab PO Q6H PRN Pain (Scale Score 10/02/22 08/30/24 History 325 mg tablet 4-6) hydroxyzine HCl 25 mg tablet 12.5 mg PO Q6H PRN Itching 10/02/22 08/30/24 History magnesium hydroxide 400 mg/5 mL 30 ml PO Q72H PRN Constipation 10/02/22 08/30/24 History oral suspension (Milk of Magnesia) ondansetron 4 mg disintegrating 4 mg PO Q6H PRN Nausea 10/02/22 08/31/24 History tablet sodium phosphates 19 gram-7 118 ml DC QDAY PRN Constipation 10/02/22 08/31/24 History gram/118 mL enema (Fleet Enema) Allergies Allergy/AdvReac Type Severity Reaction Status Date / Time No Known Allergies Allergy Verified 11/22/23 09:58 Visit Medications Acetaminophen (Acetaminophen 325 Mg Tablet) 650 mg PO Q6H PRN PRN Reason: paind and Fever >100.4 Stop: 09/29/24 13:20 Hydrocodone Bitart/Acetaminophen (Hydrocodone/Apap 5/325 Tablet) 1 tab PO Q4HR PRN PRN Reason: PAIN SCALE 4-10(Mod-Sev Stop: 09/04/24 13:20 Atorvastatin Calcium (Atorvastatin Calcium 20 Mg Tablet) 40 mg PO HS RASHID Stop: 09/29/24 20:59 Dextrose (Dextrose 50%-Water Inj 50 Ml Syringe) 25 ml IV Q15MIN PRN PRN Reason: BG 50-70 responsive npo pt Stop: 09/29/24 13:20 Dextrose (Dextrose 50%-Water Inj 50 Ml Syringe) 50 ml IV Q15MIN PRN PRN Reason: BG <50 OR BG <70 & pt unresponsive Stop: 09/29/24 13:20 Glucagon (Glucagon Inj 1 Mg Vial) 1 mg IM Q15MIN PRN PRN Reason: BG <70, and no IV access Heparin Sodium (Porcine) (Heparin Sod Inj 5000 Unit/Ml Vial) 5,000 unit SC Q8HR RASHID Stop: 09/13/24 13:59 Sodium Chloride (Ns) 1,000 mls @ 999 mls/hr IV .Q1H1M ONE Stop: 08/30/24 13:58 Last Admin: 08/30/24 13:01 Dose: 999 mls/hr Sodium Chloride (Ns) 1,000 mls @ 100 mls/hr IV .Q10H RASHID Stop: 09/29/24 13:29 Insulin Human Lispro (Insulin Lispro (Admelog) 1 Unit/0.01 Ml Unit) 0 unit SC ACHS [facility]; Protocol Stop: 09/29/24 16:59 Ondansetron HCl (Ondansetron Inj 2 Mg/Ml Inj 2 Ml) 4 mg IV Q6H PRN; Protocol PRN Reason: NAUSEA OR VOMITING Stop: 09/29/24 13:20 Sennosides (Senna Tablet) 1 tab PO QDAY PRN; Protocol PRN Reason: constipation Stop: 09/29/24 13:20 Discontinued Medications Acetaminophen (Acetaminophen 325 Mg Tablet) 650 mg PO X1 ONE Stop: 08/30/24 10:20 Last Admin: 08/30/24 10:31 Dose: 650 mg Sodium Chloride (Ns) 1,000 mls @ 999 mls/hr IV .Q1H1M ONE Stop: 08/30/24 10:52 Last Infusion: 08/30/24 11:28 Dose: Infused Sodium Chloride (Ns) 1,000 mls @ 999 mls/hr IV .Q1H1M ONE Stop: 08/30/24 11:34 Last Infusion: 08/30/24 12:30 Dose: Infused Piperacillin/Tazobactam/Dextrose (Zosyn) 3.375 gm in 50 mls @ 100 mls/hr IV X1 ONE Stop: 08/30/24 11:22 Last Infusion: 08/30/24 12:11 Dose: Infused Sodium Chloride (Ns) 500 mls @ 999 mls/hr IV .Q31M ONE Stop: 08/30/24 13:18 Last Admin: 08/30/24 12:51 Dose: 999 mls/hr Insulin Human Regular (Insulin Hum Regular 1 Unit/0.01 Ml (Per Unit)) 10 unit SC X1 ONE Stop: 08/30/24 10:58 Last Admin: 08/30/24 11:08 Dose: 10 unit Ondansetron HCl (Ondansetron Inj 2 Mg/Ml Inj 2 Ml) 4 mg IV X1 ONE; Protocol Stop: 08/30/24 09:53 Last Admin: 08/30/24 10:05 Dose: 4 mg Assessment & Plan Plan 74-year-old male with past medical history of DM2, glaucoma, triple-vessel disease (s/p stents 2018), hyperlipidemia, dementia, and hypertension was admitted to the hospital on 08/30/2024 for sepsis secondary to UTI versus community-acquired pneumonia, NSTEMI type I versus type II, and MART. #Sepsis secondary to UTI versus community-acquired pneumonia #UTI #Community-acquired pneumonia ?Patient initially came in with complaints of nausea and vomiting, but was found to have fever, leukocytosis and UTI on urinalysis. ?Patient met SIRS criteria 3 out of 4 with tachycardia, leukocytosis, and fever. ?DDx sepsis likely secondary to UTI given positive UA versus community-acquired pneumonia as CT showed some left base pneumonia ?Chest x-ray did not show any pneumonia ? CT chest/abdomen/pelvis showed mild pneumonia of left base ? UA was positive for bacteria and leukocyte esterase ?WBC 16.5 on admission ?Procalcitonin 8.57 and lactic acid 1.7 on admission ?3.5 L bolus and Zosyn in ED Plan: ?Start Rocephin 1 g daily and azithromycin 500 mg daily [08/30/2024?] ?IV fluids at 100 mL/h ?Will continue to monitor #NSTEMI type I versus type II? #Hx of triple-vessel disease (s/p stents 2019) #Hx of HLD ?Patient denies any chest pain on admission ?Initial troponin was 3.955 and up trended to 8.562 ?DDx type II given patient is septic and most likely experiencing demand ischemia versus type I given risk factors ?EKG did not show any ST changes Plan: ? Started heparin drip [08/30/2024?] ?Started aspirin and atorvastatin ?Trend troponins ?Cardiology consulted (Dr. Garcia), recommended to start heparin drip. ?Will continue to monitor #MART ?DDx prerenal given patient is septic versus intrarenal given patient is having a UTI which could be extending to the kidneys ?Base creatinine 1.1 ?creatinine today 1.6 Plan: ?IV fluids ?Avoid nephrotoxic agents ?Renally dose medication ?Will continue to monitor #Hx of DM2 ?Blood glucose 460 on admission ?10 units insulin in the ED Plan: -10 units x1 again ?ISS ?Accu-Cheks and hypoglycemic protocol ?A1c ordered for tomorrow ?Will continue to monitor #Hx of HTN ?Patient's blood pressure has been low in the ED, but has maintained a MAP above 65 and therefore not indicating any active septic shock. ?Holding antihypertensive medications given patient is septic at this time. #Hx of dementia ?Will resume home medications after med reconciliation. Disposition: Patient admitted to telemetry, trending trops, heparin drip, IV antibiotics. Diet: Cardiac/low carb GI prophylaxis: not indicated DVT prophylaxis: On heparin drip Code: Full code Case disclosed with Attending Dr. Nielsen and My senior Dr. Roman PGY2. Anand Morgan PGY1 Attending Provider Attestation/Addendum 74-year-old male with history of type 2 diabetes mellitus, hypertension, hyperlipidemia with subsequent CAD status post stent placement presented to the ER with nausea and vomiting found to have sepsis secondary to UTI and noted to have elevation in troponin with a peak of 8 and thus started on a heparin, aspirin, atorvastatin and pending cardiology input. Plan to continue monitoring the patient in telemetry and consult cardiology. I reviewed above note and agree with findings and plans. I have also personally examined the patient with medicine team and went over assessment and plan with medical team including internal corrosion specialist and resident physician.
[2024-08-30] MEDS: SODIUM CHLORIDE 0.9% 1000 ML 1,000 ML 100 ML IV (13:46)
[2024-08-30 13:58] LABS: INR 1.1 (0.9-1.3); Partial Thromboplastin Time 33.3 Seconds (22.0-36.0); Prothrombin Time 12.4 Seconds (9.0-12.2)
[2024-08-30] MEDS: AZITHROMYCIN 250 MG TABLET 500 MG PO (14:02)
[2024-08-30] MEDS: cefTRIAXone/D5w 1gm IV premix 50 ML IV (14:03)
[2024-08-30] MEDS: HEPARIN SOD INJ 5000 UNIT/ML VIAL 4000 UNIT IV (14:38)
[2024-08-30] MEDS: Heparin/D5w 25K 250 ML Ivpb 25,000 UNIT/250 ML BAG 10 UNIT IV (14:39)
[2024-08-30] MEDS: INSULIN HUM REGULAR 1 UNIT/0.01 ML (PER UNIT) 10 UNIT IV (16:04)
[2024-08-30] MEDS: INSULIN LISPRO (AdmeLOG) 1 UNIT/0.01 ML UNIT SC ×2 (18:12→21:31)
[2024-08-30 19:24] LABS: Troponin I 16.432 ng/mL (0.0-0.045)
--- NOTE | 2024-08-30 19:24 | PC.NURSE ---
received pt from ER, pt is awake and alert. able to answer questions limited with memory recollection. pictures of skin taken blood sugar checked. pt show no s/s of n/v or any distress. heparin still running without changes. endorsed to in coming LN.
[2024-08-30 21:00] LABS: Partial Thromboplastin Time 45.6 Seconds (22.0-36.0)
--- NOTE | 2024-08-30 21:05 | ESCONSULT_ITS ---
RE: RAUL PATEL : 1950 DATE OF CONSULTATION: 08/30/2024 CONSULTING PHYSICIANS: Hospitalist and resident physician. REASON FOR CONSULTATION: Evaluation of troponin elevation. The patient admitted to the hospital with sepsis, possible myocardial infarction. CHIEF COMPLAINT: Weakness and altered mental status. HISTORY OF PRESENT ILLNESS: The patient is a 74-year-old male very well known to me, who had angiogram in 2019 with severe multivessel coronary artery disease, chronically occluded RCA and left anterior descending artery with collaterals, mid and distal RCA was totally occluded, total occlusion of distal LAD and severe stenosis of distal circumflex artery, diffuse disease, treated with medical management. Preserved ejection fraction, normal, in halfway [place] for more than 5 years, came to the hospital with altered mental status and urinary tract infection, white count elevation as well as findings consistent with urinary tract infection. Also, not having any chest pain, but troponin was quite elevated initially at 3.9, went up to 8.[address] to 16.4. The patient has been started on fluids and antibiotics with some improvement, not complaining of any chest pain or shortness of breath. ALLERGIES: NONE. MEDICATIONS AT HOME: He states his list of medications includes: 1. Carvedilol 3.125 b.i.d. 2. Eye drops Alphagan. 3. Latanoprost eye drops. 4. Januvia 100 mg daily. 5. Timolol eye drops. 6. Metformin 1000 mg b.i.d. 7. Acetaminophen 320 daily. 8. Gabapentin 600 daily. 9. Rosuvastatin 20 mg daily. PAST MEDICAL HISTORY: Diabetes, hypertension, severe triple vessel disease, preserved ejection fraction. SOCIAL HISTORY: The patient lives in a assisted facility. He does not smoke or drink alcoholic beverages. FAMILY HISTORY: Not available. REVIEW OF SYSTEMS: Cardiovascular: No chest pain. Mild shortness of breath. Gastrointestinal: No history of nausea or vomiting. Genitourinary: No history of frequency or dysuria. MARKETING RECRUITER: No neurological symptoms. PHYSICAL EXAMINATION: GENERAL: Well-nourished, acutely ill, chronically ill male, alert, awake, in no acute distress. VITAL SIGNS: Blood pressure is 108/82, pulse rate is 100, respirations 16, temperature normal. HEENT: Head is atraumatic, normocephalic. Eyes normal. ENT normal. NECK: Supple. No JVD. Carotid pulses felt, but no bruits. CHEST: Symmetrical. LUNGS: Decreased breath sounds at bases. HEART: S1, S2 regular. ABDOMEN: Thin and soft. EXTREMITIES: Mild edema. GENITOURINARY AND RECTAL: Not performed. MARKETING RECRUITER: Normal. Electrocardiogram showed a sinus tachycardia, rate of 115 beats per minute, evidence of old inferior wall myocardial infarction, QRS complex in inferior leads, poor R-wave progression in precordial leads, possible anterior wall myocardial infarction. No ST depression. No significant changes from previous EKG that was in 2021. Chest x-ray consistent with no evidence of heart failure, mild congestion. CT of the abdomen, chest and pelvis was also performed, showed no evidence of any acute problems, fatty infiltration of liver. There are some gallstones. LABORATORY DATA: Did show evidence of leukocytosis, white count of 16.5. Urinalysis showed evidence of 2+ protein in the urine, 4+ glucose, ketones positive, blood was positive as well as positive for UTI with WBC 528. IMPRESSION/ASSESSMENT: 1. Acute non-ST segment elevation myocardial infarction with severe multivessel coronary artery disease with diffuse disease as well as total occlusion of left anterior descending, right coronary artery and severe diffuse stenosis of distal circumflex artery by angiogram in 2019. 2. Urinary tract infection, urosepsis. 3. Hypertension, now hypotensive. 4. Diabetes mellitus. RECOMMENDATIONS: The patient is to be continued on aspirin and heparin for now. Treat underlying urinary tract infection aggressively IV antibiotics and IV fluids carefully, watch for signs of heart failure. Once his condition improves, sepsis improves, might consider angiogram, but for now, no angiogram is planned, but continue the anticoagulation with heparin and aspirin at least for 48 hours. We would like to thank you for referring him for cardiovascular evaluation. We will be glad to follow the patient with you. DT: 20:34:43 TT: 21:03:00 Ref: [id number] - TID: [id number]
[2024-08-30] MEDS: ATORVASTATIN CALCIUM 20 MG TABLET 40 MG PO (21:31)
[2024-08-30] MEDS: HEPARIN SOD INJ 5000 UNIT/ML VIAL 2000 UNIT IVP (21:32)
[2024-08-31] VITALS (8 sets, daily range): BP systolic 106–116; BP diastolic 71–82; PULSE 70–103; RESP 12–19; TEMP 36.3–37; O2SAT 94–97; BMI 34.7
[2024-08-31 03:43] LABS: Basophils % (Auto) 0 % (0-2.5); Eosinophils # (Auto) 0.1 Thou/mm3 (0.0-0.5); Eosinophils % (Auto) 1 % (0-10); Hematocrit 37.6 % (41.0-53.0); Hemoglobin 12.2 g/dL (13.5-16.0); Immature Granulocytes % (Auto) 0 % (0-0); Immature Granulocytes Auto 0.02 Thou/mm3 (0.00-0.00); Lymphocytes # (Auto) 1.5 Thou/mm3 (1.0-4.8); Lymphocytes % (Auto) 18 % (10-50); Mean Corpuscular HGB Conc 32.4 g/dl (31.0-37.0); Mean Corpuscular Hemoglobin 29.8 pg (25.0-35.0); Mean Corpuscular Volume 92 fL (80-100); Monocytes # (Auto) 1.1 Thou/mm3 (0.0-0.8); Monocytes % (Auto) 12 % (0-12); Neutrophils # (Auto) 6.1 Thou/mm3 (1.8-7.7); Neutrophils % (Auto) 70 % (37-80); Nucleated Red Blood Cell % 0 /100 WBC (0); Platelet Count 133 Thou/mm3 (140-440); Red Blood Count 4.09 Miln/mm3 (4.50-5.90); White Blood Count 8.8 Thou/mm3 (3.8-10.6)
[2024-08-31 03:52] LABS: Glucose Estimated Average 163 mg/dL (80-131); Hemoglobin A1C 7.3 % Hgb (4.8-6.0)
[2024-08-31 03:54] LABS: Partial Thromboplastin Time 49.1 Seconds (22.0-36.0)
[2024-08-31 03:56] LABS: Anion Gap 4 (7-16); BUN/Creatinine Ratio 16 Ratio (12-20); Blood Urea Nitrogen 23 mg/dL (9-23); Calcium 8.4 mg/dL (8.3-10.6); Carbon Dioxide 26.6 mMol/L (20.0-31.0); Chloride 108 mMol/L (98-107); Creatinine (Component) 1.4 mg/dL (0.6-1.3); Estimated Creatinine Clearance 66.1 mL/min (>60); Glucose 189 mg/dL (74-106); Magnesium 1.7 mg/dL (1.6-2.6); Osmolality,Calculated 286 (275-295); Phosphorous 3.5 mg/dL (2.4-5.1); Potassium 4.8 mMol/L (3.4-5.1); Sodium 139 mMol/L (136-145); eGFR 53 See Note
[2024-08-31] MEDS: HEPARIN SOD INJ 5000 UNIT/ML VIAL 2000 UNIT IVP ×2 (04:20→18:15)
[2024-08-31] MEDS: INSULIN LISPRO (AdmeLOG) 1 UNIT/0.01 ML UNIT SC ×4 (07:44→20:39)
[2024-08-31 08:25] LABS: Troponin I 13.804 ng/mL (0.0-0.045)
[2024-08-31] MEDS: ASPIRIN EC 81 MG TABEC PO (08:54)
--- NOTE | 2024-08-31 10:54 | ESPR_ITS ---
<Statement entered by Tom Garcia MD - 09/01/24 12:23> I personally evaluated the patient appears to be doing better today he had definite myocardial infarction with troponin elevation type II troponin elevation initially thought to be but now troponin is significantly elevated suggestive NSTEMI patient has multivessel CAD including total occlusion of distal RCA mid RCA as well as severe diffuse circumflex disease by angiogram in 2019 patient will require angiogram prior to discharge possibly another day or 2 once her sepsis is controlled and white count is normal. I agree with the treatment plan recommendation as formulated by PGY 2 Dr. Oneal I was present during the evaluation management and recommendations Documentation for date of: 08/31/24 Subjective Subjective Interval history: The patient is a 74-year-old male very well known to me, who had angiogram in 2019 with severe multivessel coronary artery disease, chronically occluded RCA and left anterior descending artery with collaterals, mid and distal RCA was totally occluded, total occlusion of distal LAD and severe stenosis of distal circumflex artery, diffuse disease, treated with medical management. Preserved ejection fraction, normal, [place] [place] more than 5 years, came to the hospital with altered mental status and urinary tract infection, white count elevation as well as findings consistent with urinary tract infection. Also, not having any chest pain, but troponin was quite elevated initially at 3.9, went up to 8.5 [address]to 16.4. The patient has been started on fluids and antibiotics with some improvement, not complaining of any chest pain or shortness of breath. Labs revealed leukocytosis, urinalysis showed proteinuria, glucosuria and ketones positive with blood and UTI. EKG showed sinus tachycardia rate 115 bpm, evidence of old inferior wall ND, QRS complex in inferior leads, poor R wave progression in precordial leads possible anterior wall ND. No ST depression. No significant changes from previous EKG that was seen on 2021. Chest x-ray was consistent with no evidence of heart failure, mild congestion. CT abdomen pelvis showed no evidence of acute problems, fatty infiltration of liver. Gallstones. PMH: As above Allergies: NKDA Home medications: Carvedilol 3.125 b.i.d, Eye drops Alphagan,Latanoprost eye drops,Januvia 100 mg daily,Timolol eye drops,Metformin 1000 mg b.i.d,Acetaminophen 320 daily,Gabapentin 600 daily,Rosuvastatin 20 mg daily. 08/31/2024: Patient was seen and examined at the bedside. Patient was feeling okay and had no SOB. Morning labs revealed improvement in white count, stable hemoglobin at 12.2. Mild thrombocytopenia platelet 133. Chemistry panel showed slight improvement in creatinine 1.4 today. A1c 7.3. Troponin down trended from 16.4->13.8.Recommended to continue heparin drip for now and will await for resolution of sepsis due to UTI and will likely perform left heart catheterization before discharge to evaluate any new blockage. Exam Vital Signs Temp Pulse Resp BP Pulse Ox O2 Del Method O2 Flow Rate 97.3 F 90 18 111/77 96 Nasal Cannula 2 08/31/24 08:00 08/31/24 08:00 08/31/24 08:00 08/31/24 08:00 08/31/24 08:00 08/31/24 08:00 08/31/24 08:00 Narrative Exam GENERAL APPEARANCE: Patient is AOx3, in no acute distress. HEENT: NC, AT. MMM. EOMI, clear conjunctiva, oropharynx clear. NECK: Supple without lymphadenopathy. No stiffness or restricted ROM. HEART: Regular rate and regular rhythm, normal S1/S2, no m/r/g LUNGS: CTAB, moving air well. No crackles or wheezes are heard. ABDOMEN: Soft, nontender, nondistended with good bowel sounds heard. EXTREMITIES: 1+ pitting edema noticed on both lower extremities. NEUROLOGICAL: Grossly nonfocal. Alert and oriented, moving all 4 extremities. CN not formally tested but appear grossly intact. Skin: Warm and dry without any rash. Psych: Appropriate mood and affect Objective Labs 08/31/24 03:35 08/31/24 03:35 Labs: Laboratory Results - last 24 hr 08/30/24 08/30/24 08/30/24 10:00 11:45 12:30 WBC RBC Hgb Hct MCV MCH MCHC RDW Std Deviation Plt Count Neut % (Auto) Lymph % (Auto) [place] % (Auto) Eos % (Auto) Baso % (Auto) Neut # (Auto) Lymph # (Auto) [place] # (Auto) Eos # (Auto) Baso # (Auto) Immature Gran # (Auto) Absolute Nucleated RBC Immature Gran % Nucleated RBC % PT 12.4 H INR 1.1 APTT 33.3 Sodium Potassium Chloride Carbon Dioxide Anion Gap BUN Creatinine Estim Creat Clear Calc eGFR BUN/Creatinine Ratio Glucose Estimated Ave Glu mg/dL Hemoglobin A1c Calculated Osmolality Calcium Phosphorus Magnesium Troponin I 8.562 H* D RSV Rapid Negative 08/30/24 08/30/24 08/31/24 18:44 20:30 00:27 WBC RBC Hgb Hct MCV MCH MCHC RDW Std Deviation Plt Count Neut % (Auto) Lymph % (Auto) [place] % (Auto) Eos % (Auto) Baso % (Auto) Neut # (Auto) Lymph # (Auto) [place] # (Auto) Eos # (Auto) Baso # (Auto) Immature Gran # (Auto) Absolute Nucleated RBC Immature Gran % Nucleated RBC % PT INR APTT 45.6 H D Sodium Potassium Chloride Carbon Dioxide Anion Gap BUN Creatinine Estim Creat Clear Calc eGFR BUN/Creatinine Ratio Glucose Estimated Ave Glu mg/dL Hemoglobin A1c Calculated Osmolality Calcium Phosphorus Magnesium Troponin I 16.432 H* D 16.440 H* RSV Rapid 08/31/24 08/31/24 03:35 07:55 WBC 8.8 D RBC 4.09 L Hgb 12.2 L Hct 37.6 L MCV 92 MCH 29.8 MCHC 32.4 RDW Std Deviation 50.0 H Plt Count 133 L D Neut % (Auto) 70 Lymph % (Auto) 18 [place] % (Auto) 12 Eos % (Auto) 1 Baso % (Auto) 0 Neut # (Auto) 6.1 Lymph # (Auto) 1.5 [place] # (Auto) 1.1 H Eos # (Auto) 0.1 Baso # (Auto) 0.0 Immature Gran # (Auto) 0.02 H Absolute Nucleated RBC 0.00 Immature Gran % 0 Nucleated RBC % 0 PT INR APTT 49.1 H Sodium 139 Potassium 4.8 Chloride 108 H Carbon Dioxide 26.6 Anion Gap 4 L BUN 23 Creatinine 1.4 H Estim Creat Clear Calc 66.1 eGFR 53 L BUN/Creatinine Ratio 16 Glucose [address] Glu mg/dL 163 H Hemoglobin A1c 7.3 H Calculated Osmolality 286 Calcium 8.4 Phosphorus 3.5 Magnesium 1.7 Troponin I 13.804 H* D RSV Rapid Quality Measures Quality Measures VTE prophylaxis (Heparin drip) and sepsis Current suspected stage: sepsis Possible source: other (multi organ see below) Blood cultures ordered: yes Antibiotic ordered: Yes Advance care planning discussed with:: patient Assessment & Plan Assessment Current Active Medications: Generic Name Dose Route Start Last Admin Trade Name Freq PRN Reason Stop Dose Admin Acetaminophen 650 mg 08/30/24 13:21 08/30/24 21:41 Acetaminophen 325 Mg Tablet PO 09/29/24 13:20 650 mg Q6H PRN Administration pain 1-3 and Fever >100.4 Hydrocodone Bitart/Acetaminophen 1 tab 08/30/24 13:21 Hydrocodone/Apap 5/325 Tablet PO 09/04/24 13:20 Q4HR PRN PAIN SCALE 4-10(Mod-Sev Aspirin 81 mg 08/31/24 09:00 08/31/24 08:54 Aspirin Ec 81 Mg Tabec PO 09/30/24 08:59 81 mg QDAY RASHID Administration Atorvastatin Calcium 40 mg 08/30/24 21:00 08/30/24 21:31 Atorvastatin Calcium 20 Mg Tablet PO 09/29/24 20:59 40 mg HS RASHID Administration Azithromycin 500 mg 08/30/24 14:00 08/30/24 14:02 Azithromycin 250 Mg Tablet PO 09/06/24 13:59 500 mg QDAY@1400 RASHID Administration Dextrose 25 ml 08/30/24 13:21 Dextrose 50%-Water Inj 50 Ml Syringe IV 09/29/24 13:20 Q15MIN PRN BG 50-70 responsive npo pt Dextrose 50 ml 08/30/24 13:21 Dextrose 50%-Water Inj 50 Ml Syringe IV 09/29/24 13:20 Q15MIN PRN BG <50 OR BG <70 & pt unresponsive Glucagon 1 mg 08/30/24 13:21 Glucagon Inj 1 Mg Vial IM Q15MIN PRN BG <70, and no IV access Heparin Sodium/Dextrose 25,000 unit in 250 mls @ 10 mls/hr 08/30/24 13:45 08/31/24 04:20 Heparin In D5w Ivpb IV 09/13/24 13:44 12.47 units/kg/hr .Q24H RASHID 14.763 mls/hr Titration Protocol 8.447 UNITS/KG/HR Ceftriaxone Sodium/Dextrose 50 mls @ 100 mls/hr 08/30/24 13:44 08/30/24 14:40 Rocephin/D5w 1gm Iv Premix IV 09/06/24 13:43 Infused QDAY@1400 RASHID Infusion Insulin Human Lispro 0 unit 08/30/24 17:00 08/31/24 07:44 Insulin Lispro (Admelog) 1 Unit/0.01 Ml Unit SC 09/29/24 16:59 2 unit ACHS [facility] Administration Protocol Ondansetron HCl 4 mg 08/30/24 13:21 Ondansetron Inj 2 Mg/Ml Inj 2 Ml IV 09/29/24 13:20 Q6H PRN NAUSEA OR VOMITING Protocol Sennosides 1 tab 08/30/24 13:21 Senna Tablet PO 09/29/24 13:20 QDAY PRN constipation Protocol Plan This 74-year-old male with past medical history of DM2, glaucoma, triple-vessel disease (s/p stents 2018), hyperlipidemia, dementia, and hypertension was admitted to the hospital on 08/30/2024 for sepsis secondary to UTI versus community-acquired pneumonia, NSTEMI type I versus type II, and MART. # Acute NSTEMI type I with multi vessel coronary artery disease # History of triple-vessel disease post stents 2018 # History of hyperlipidemia ? Patient presented with weakness & complained of nausea and vomiting and was found to have fever, leukocytosis and UTI on urinalysis. Patient met 3/4 SIRS criteria with tachycardia, leukocytosis and fever. Chest x-ray did not show any pneumonia. CT chest abdomen pelvis showed mild pneumonia left base. Procalcitonin and lactic acidosis was seen on admission. ?EKG showed sinus tachycardia rate 115 bpm, evidence of old inferior wall ND, QRS complex in inferior leads, poor R wave progression in precordial leads possible anterior wall ND. No ST depression. ? Left heart catheterization in 2019 showed total occlusion of LAD, RCA and severe diffuse stenosis of distal circumflex artery. ? Morning labs revealed improvement in white count, stable hemoglobin at 12.2. Mild thrombocytopenia platelet 133. Chemistry panel showed slight improvement in creatinine 1.4 today. A1c 7.3. Troponin down trended from 16.4->13.8. Plan: ? Continue heparin drip and aspirin and statin therapy ? Will likely perform left heart catheterization before discharge awaiting sepsis resolution ? Continue IV antibiotic therapy ? Replete electrolytes as necessary ? Keep magnesium above 2 and potassium above 4 ? Daily labs # Sepsis likely due to urinary tract infection and community-acquired pneumonia # Lactic acidosis type B # MART likely prerenal underlying sepsis # History of hypertension # History of diabetes # Leukocytosis # History of dementia Rest of the management as per primary care team. Thank you very much for consulting cardiology team. Recommended to continue aspirin and heparin drip for now. Will likely perform left heart catheterization before discharge once sepsis resolved. Plan of care discussed with tyre builder, Dr. Jose Pollard MD, PGY 2
--- NOTE | 2024-08-31 11:15 | ESPR_ITS ---
<Statement entered by Len Roman MD - 08/31/24 15:06> Senior Resident Attestation: I supervised/discussed management plan with safety intern physician Dr. Byrd, and was involved in the care of this patient. I personally saw and examined the patient and discussed the assessment and plan with the entire medicine team, including my attending. I agree with the assessment and plan as documented. Patient's care was discussed with attending physician, Dr. Nielsen. Len Roman MD PGY-2. Documentation for date of: 08/31/24 Subjective Subjective Interval history: Patient seen at bedside this morning. No overnight events. Patient states feeling well with no chest pain, fevers, nausea, or abdominal pain. Cardiology recommended to continue heparin and the patient will most likely go for heart cathbefore discharge once sepsis resolves. No other complaints at this time. Exam Vital Signs Temp Pulse Resp BP Pulse Ox O2 Del Method O2 Flow Rate 97.3 F 90 18 111/77 96 Nasal Cannula 2 08/31/24 08:00 08/31/24 08:00 08/31/24 08:00 08/31/24 08:00 08/31/24 08:00 08/31/24 08:00 08/31/24 08:00 Narrative Exam General: A/O x3, no acute distress, obese Eyes: PERRL, EOMI. Anicteric, vision impaired. Ears: No ear pain, no ear discharge, Hearing grossly intact. Nose: No nasal discharge. Mouth/Throat: Dry mucous membranes, no redness, no lesions. Neck: short neck , non-tender, no cervical lymphadenopathy. Lungs: Clear LUPILLO to auscultation and percussion, No accessory muscle use. Cardio: Normal S1/S2, regular rhythm, no murmurs, no JVD Abdomen: Soft, but distended, no palpable masses, peristalsis present, no guarding or rebound. Extremities: Symmetrical, no significant deformities, 1+ peripheral edema , non-tender, peripheral pulses presents. Skin: No rashes, no lesions, warm to touch. Neuro: No focal neurological deficits. able to follow commands, able to move all extremities. Strength in LUPILLO LE 3/5. Psych:flat effect Objective Labs 09/03/24 08:25 09/03/24 08:25 Labs: Laboratory Results - last 24 hr 08/30/24 08/30/24 08/30/24 10:00 11:45 12:30 WBC RBC Hgb Hct MCV MCH MCHC RDW Std Deviation Plt Count Neut % (Auto) Lymph % (Auto) [place] % (Auto) Eos % (Auto) Baso % (Auto) Neut # (Auto) Lymph # (Auto) [place] # (Auto) Eos # (Auto) Baso # (Auto) Immature Gran # (Auto) Absolute Nucleated RBC Immature Gran % Nucleated RBC % PT 12.4 H INR 1.1 APTT 33.3 Sodium Potassium Chloride Carbon Dioxide Anion Gap BUN Creatinine Estim Creat Clear Calc eGFR BUN/Creatinine Ratio Glucose Estimated Ave Glu mg/dL Hemoglobin A1c Calculated Osmolality Calcium Phosphorus Magnesium Troponin I 8.562 H* D RSV Rapid Negative 08/30/24 08/30/24 08/31/24 18:44 20:30 00:27 WBC RBC Hgb Hct MCV MCH MCHC RDW Std Deviation Plt Count Neut % (Auto) Lymph % (Auto) [place] % (Auto) Eos % (Auto) Baso % (Auto) Neut # (Auto) Lymph # (Auto) [place] # (Auto) Eos # (Auto) Baso # (Auto) Immature Gran # (Auto) Absolute Nucleated RBC Immature Gran % Nucleated RBC % PT INR APTT 45.6 H D Sodium Potassium Chloride Carbon Dioxide Anion Gap BUN Creatinine Estim Creat Clear Calc eGFR BUN/Creatinine Ratio Glucose Estimated Ave Glu mg/dL Hemoglobin A1c Calculated Osmolality Calcium Phosphorus Magnesium Troponin I 16.432 H* D 16.440 H* RSV Rapid 08/31/24 08/31/24 03:35 07:55 WBC 8.8 D RBC 4.09 L Hgb 12.2 L Hct 37.6 L MCV 92 MCH 29.8 MCHC 32.4 RDW Std Deviation 50.0 H Plt Count 133 L D Neut % (Auto) 70 Lymph % (Auto) 18 [place] % (Auto) 12 Eos % (Auto) 1 Baso % (Auto) 0 Neut # (Auto) 6.1 Lymph # (Auto) 1.5 [place] # (Auto) 1.1 H Eos # (Auto) 0.1 Baso # (Auto) 0.0 Immature Gran # (Auto) 0.02 H Absolute Nucleated RBC 0.00 Immature Gran % 0 Nucleated RBC % 0 PT INR APTT 49.1 H Sodium 139 Potassium 4.8 Chloride 108 H Carbon Dioxide 26.6 Anion Gap 4 L BUN 23 Creatinine 1.4 H Estim Creat Clear Calc 66.1 eGFR 53 L BUN/Creatinine Ratio [address] Glu mg/dL 163 H Hemoglobin A1c 7.3 H Calculated Osmolality 286 Calcium 8.4 Phosphorus 3.5 Magnesium 1.7 Troponin I 13.804 H* D RSV Rapid Quality Measures Quality Measures VTE prophylaxis (Heparin drip) and sepsis Current suspected stage: sepsis Possible source: other (multi organ see below) Blood cultures ordered: yes Antibiotic ordered: Yes Advance care planning discussed with:: patient Assessment & Plan Assessment Current Active Medications: Generic Name Dose Route Start Last Admin Trade Name Freq PRN Reason Stop Dose Admin Acetaminophen 650 mg 08/30/24 13:21 08/30/24 21:41 Acetaminophen 325 Mg Tablet PO 09/29/24 13:20 650 mg Q6H PRN Administration pain 1-3 and Fever >100.4 Hydrocodone Bitart/Acetaminophen 1 tab 08/30/24 13:21 Hydrocodone/Apap 5/325 Tablet PO 09/04/24 13:20 Q4HR PRN PAIN SCALE 4-10(Mod-Sev Aspirin 81 mg 08/31/24 09:00 08/31/24 08:54 Aspirin Ec 81 Mg Tabec PO 09/30/24 08:59 81 mg QDAY RASHID Administration Atorvastatin Calcium 40 mg 08/30/24 21:00 08/30/24 21:31 Atorvastatin Calcium 20 Mg Tablet PO 09/29/24 20:59 40 mg HS RASHID Administration Azithromycin 500 mg 08/30/24 14:00 08/30/24 14:02 Azithromycin 250 Mg Tablet PO 09/06/24 13:59 500 mg QDAY@1400 RASHID Administration Dextrose 25 ml 08/30/24 13:21 Dextrose 50%-Water Inj 50 Ml Syringe IV 09/29/24 13:20 Q15MIN PRN BG 50-70 responsive npo pt Dextrose 50 ml 08/30/24 13:21 Dextrose 50%-Water Inj 50 Ml Syringe IV 09/29/24 13:20 Q15MIN PRN BG <50 OR BG <70 & pt unresponsive Glucagon 1 mg 08/30/24 13:21 Glucagon Inj 1 Mg Vial IM Q15MIN PRN BG <70, and no IV access Heparin Sodium/Dextrose 25,000 unit in 250 mls @ 10 mls/hr 08/30/24 13:45 08/31/24 04:20 Heparin In D5w Ivpb IV 09/13/24 13:44 12.47 units/kg/hr .Q24H RASHID 14.763 mls/hr Titration Protocol 8.447 UNITS/KG/HR Ceftriaxone Sodium/Dextrose 50 mls @ 100 mls/hr 08/30/24 13:44 08/30/24 14:40 Rocephin/D5w 1gm Iv Premix IV 09/06/24 13:43 Infused QDAY@1400 RASHID Infusion Insulin Human Lispro 0 unit 08/30/24 17:00 08/31/24 07:44 Insulin Lispro (Admelog) 1 Unit/0.01 Ml Unit SC 09/29/24 16:59 2 unit ACHS RASHID Administration Protocol Ondansetron HCl 4 mg 08/30/24 13:21 Ondansetron Inj 2 Mg/Ml Inj 2 Ml IV 09/29/24 13:20 Q6H PRN NAUSEA OR VOMITING Protocol Sennosides 1 tab 08/30/24 13:21 Senna Tablet PO 09/29/24 13:20 QDAY PRN constipation Protocol Plan 74-year-old male with past medical history of DM2, glaucoma, triple-vessel disease (s/p stents 2018), hyperlipidemia, dementia, and hypertension was admitted to the hospital on 08/30/2024 for sepsis secondary to UTI versus community-acquired pneumonia, NSTEMI type I versus type II, and MART. #Sepsis secondary to UTI versus community-acquired pneumonia #UTI #Community-acquired pneumonia ?Patient initially came in with complaints of nausea and vomiting, but was found to have fever, leukocytosis and UTI on urinalysis. ?Patient met SIRS criteria 3 out of 4 with tachycardia, leukocytosis, and fever. ?DDx sepsis likely secondary to UTI given positive UA versus community-acquired pneumonia as CT showed some left base pneumonia ?Chest x-ray did not show any pneumonia ? CT chest/abdomen/pelvis showed mild pneumonia of left base ? UA was positive for bacteria and leukocyte esterase ?WBC 8.8 today -Blood Cx negative in 24 hrs Plan: ?Continue Rocephin 1 g daily and azithromycin 500 mg daily [08/30/2024?] ?Blood Cx pending. ?Will continue to monitor #NSTEMI type I versus type II? #Hx of triple-vessel disease (s/p stents 2019) #Hx of HLD ?Patient denies any chest pain on admission ?DDx type II given patient is septic and most likely experiencing demand ischemia versus type I given risk factors ?EKG did not show any ST changes -Troponin peaked at 16.44 and downtrended Plan: ?Continue heparin drip [08/30/2024?] ?Continue aspirin and atorvastatin ?Trend troponins ?Cardiology consulted (Dr. Garcia), recommended to continue heparin drip and possible heart cath when sepsis resolves, prior to DC. ?Will continue to monitor #MART ?DDx prerenal given patient is septic versus intrarenal given patient is having a UTI which could be extending to the kidneys ?Base creatinine 1.1 ?creatinine today 1.4 Plan: ?Avoid nephrotoxic agents ?Renally dose medication ?Will continue to monitor #Hx of DM2 ?Blood glucose 460 on admission ?A1c 7.3% 08/2024 Plan: ?ISS ?Accu-Cheks and hypoglycemic protocol ?Will continue to monitor #Hx of HTN ?Patient's blood pressure has been low in the ED, but has maintained a MAP above 65 and therefore not indicating any active septic shock. ?Holding antihypertensive medications given patient is septic at this time. #Hx of dementia ?Will resume home medications after med reconciliation. Disposition: Patient admitted to telemetry, continue heparin drip and IV antibiotics, possible heart cath prior to DC. Diet: Cardiac/low carb GI prophylaxis: not indicated DVT prophylaxis: On heparin drip Code: Full code Case disclosed with Attending Dr. Nielsen and My senior Dr. Roman PGY2. Anand Morgan PGY1 Attending Provider Attestation/Addendum 74-year-old male with history of type 2 diabetes mellitus, hypertension, hyperlipidemia with subsequent CAD status post stent placement presented to the ER with nausea and vomiting found to have sepsis secondary to UTI and noted to have elevation in troponin with a peak of 16 and thus started on a heparin, aspirin, atorvastatin and pending cardiology input. Plan to continue monitoring the patient in telemetry and consult cardiology. Patient was evaluated by cardiology and recommended cardiac catheterization. I reviewed above note and agree with findings and plans. I have also personally examined the patient with medicine team and went over assessment and plan with medical team including safety intern and resident physician.
[2024-08-31 11:37] LABS: Partial Thromboplastin Time 57.7 Seconds (22.0-36.0)
[2024-08-31] MEDS: Heparin/D5w 25K 250 ML Ivpb 25,000 UNIT/250 ML BAG 14.763 UNIT IV (11:44)
[2024-08-31] MEDS: AZITHROMYCIN 250 MG TABLET 500 MG PO (13:42)
[2024-08-31] MEDS: cefTRIAXone/D5w 1gm IV premix 50 ML IV (13:43)
[2024-08-31] MEDS: Magnesium Sulfate 2 GM Ivpb 2 GM/50 ML BAG IV (15:11)
[2024-08-31 15:58] LABS: Troponin I 10.158 ng/mL (0.0-0.045)
--- NOTE | 2024-08-31 16:15 | PC.SS ---
Rounding note: patient not ready for d/c. Continue heparin drip and IV antibiotics, possible heart cath prior to DC.
[2024-08-31 17:46] LABS: Partial Thromboplastin Time 36.9 Seconds (22.0-36.0)
[2024-08-31] MEDS: ATORVASTATIN CALCIUM 20 MG TABLET 40 MG PO (20:33)
[2024-09-01] VITALS (9 sets, daily range): BP systolic 102–146; BP diastolic 75–102; PULSE 67–98; RESP 17–86; TEMP 35.9–36.4; O2SAT 95–99
[2024-09-01 00:59] LABS: Troponin I 10.037 ng/mL (0.0-0.045)
[2024-09-01 06:26] LABS: Basophils % (Auto) 0 % (0-2.5); Eosinophils # (Auto) 0.1 Thou/mm3 (0.0-0.5); Eosinophils % (Auto) 1 % (0-10); Hematocrit 36.9 % (41.0-53.0); Hemoglobin 12.2 g/dL (13.5-16.0); Immature Granulocytes % (Auto) 0 % (0-0); Immature Granulocytes Auto 0.03 Thou/mm3 (0.00-0.00); Lymphocytes # (Auto) 1.5 Thou/mm3 (1.0-4.8); Lymphocytes % (Auto) 19 % (10-50); Mean Corpuscular HGB Conc 33.1 g/dl (31.0-37.0); Mean Corpuscular Hemoglobin 29.6 pg (25.0-35.0); Mean Corpuscular Volume 90 fL (80-100); Monocytes # (Auto) 0.9 Thou/mm3 (0.0-0.8); Monocytes % (Auto) 11 % (0-12); Neutrophils # (Auto) 5.3 Thou/mm3 (1.8-7.7); Neutrophils % (Auto) 67 % (37-80); Nucleated Red Blood Cell % 0 /100 WBC (0); Platelet Count 153 Thou/mm3 (140-440); RDW Standard Deviation 48.2 fL (35.1-43.9); Red Blood Count 4.12 Miln/mm3 (4.50-5.90); White Blood Count 7.9 Thou/mm3 (3.8-10.6)
[2024-09-01] MEDS: Heparin/D5w 25K 250 ML Ivpb 25,000 UNIT/250 ML BAG 17.131 UNIT IV ×2 (06:43→23:49)
[2024-09-01 07:17] LABS: INR 1.1 (0.9-1.3); Partial Thromboplastin Time 56.5 Seconds (22.0-36.0); Prothrombin Time 11.9 Seconds (9.0-12.2)
[2024-09-01 07:24] LABS: Anion Gap 8 (7-16); BUN/Creatinine Ratio 15 Ratio (12-20); Blood Urea Nitrogen 19 mg/dL (9-23); Carbon Dioxide 23.5 mMol/L (20.0-31.0); Chloride 105 mMol/L (98-107); Creatinine (Component) 1.3 mg/dL (0.6-1.3); Estimated Creatinine Clearance 71.4 mL/min (>60); Glucose 216 mg/dL (74-106); Osmolality,Calculated 281 (275-295); Phosphorous 2.4 mg/dL (2.4-5.1); Potassium 4.2 mMol/L (3.4-5.1); Sodium 136 mMol/L (136-145); eGFR 58 See Note
[2024-09-01] MEDS: INSULIN LISPRO (AdmeLOG) 1 UNIT/0.01 ML UNIT SC ×4 (07:35→20:30)
[2024-09-01] MEDS: ONDANSETRON INJ 2 MG/ML INJ 2 ML 4 MG IV ×2 (07:58→13:27)
[2024-09-01] MEDS: ASPIRIN EC 81 MG TABEC PO (08:41)
--- NOTE | 2024-09-01 09:32 | PC.SS ---
Initial assessment: Cristhian Rinaldi is a 74 year old male admitted for sepsis 2/2 and UTI. Patient is a urgent care resident of [facility]. Patient requires assistance with ADLs and does not ambulate. Patient's sister, Graciela Brasher is identified as the alternate surrogate medical decision maker. Facilities PCP is Dr. Michelle Vegas. Plan is to return to SNF once medically stable. Next of kin: sister: Graciela Brasher D/c plan: return to SNF
--- NOTE | 2024-09-01 11:21 | ESPR_ITS ---
<Statement entered by Len Roman MD - 09/01/24 18:31> Senior Resident Attestation: I supervised/discussed management plan with international operations manager physician Dr. Byrd, and was involved in the care of this patient. I personally saw and examined the patient and discussed the assessment and plan with the entire medicine team, including my attending. I agree with the assessment and plan as documented. Patient's care was discussed with attending physician, Dr. Nielsen. Len Roman MD PGY-2. Documentation for date of: 09/01/24 Subjective Subjective Interval history: Patient seen at bedside this morning. No overnight events. Patient states feeling well with no chest pain, but he did mentioned he was feeling nauseated and had a vomiting episode overnight and one in the morning. Patient had no spikes in fever and WBC downtrending, Cardiology stated to continue heparin drip and will most likely due heart cath tomorrow, npo after midnight. Exam Vital Signs Temp Pulse Resp BP Pulse Ox O2 Del Method O2 Flow Rate 97.5 F 95 22 H 128/86 H 95 Room Air 2 09/01/24 07:55 09/01/24 08:06 09/01/24 08:06 09/01/24 07:55 09/01/24 08:06 09/01/24 07:55 08/31/24 21:14 Narrative Exam General: A/O x3, no acute distress, obese Eyes: PERRL, EOMI. Anicteric, vision impaired. Ears: No ear pain, no ear discharge, Hearing grossly intact. Nose: No nasal discharge. Mouth/Throat: Dry mucous membranes, no redness, no lesions. Neck: short neck , non-tender, no cervical lymphadenopathy. Lungs: Clear LUPILLO to auscultation and percussion, No accessory muscle use. Cardio: Normal S1/S2, regular rhythm, no murmurs, no JVD Abdomen: Soft, but distended, no palpable masses, peristalsis present, no guarding or rebound. Extremities: Symmetrical, no significant deformities, still 1+ peripheral edema , non-tender, peripheral pulses presents. Skin: No rashes, no lesions, warm to touch. Neuro: No focal neurological deficits. able to follow commands, able to move all extremities. Strength in LUPILLO LE 3/5. Psych:flat effect Objective Labs 09/03/24 08:25 11/21/24 08:25 Labs: Laboratory Results - last 24 hr 08/31/24 08/31/24 08/31/24 10:36 15:14 16:30 WBC RBC Hgb Hct MCV MCH MCHC RDW Std Deviation Plt Count Neut % (Auto) Lymph % (Auto) [place] % (Auto) Eos % (Auto) Baso % (Auto) Neut # (Auto) Lymph # (Auto) [place] # (Auto) Eos # (Auto) Baso # (Auto) Immature Gran # (Auto) Absolute Nucleated RBC Immature Gran % Nucleated RBC % PT INR APTT 57.7 H 36.9 H D Sodium Potassium Chloride Carbon Dioxide Anion Gap BUN Creatinine Estim Creat Clear Calc eGFR BUN/Creatinine Ratio Glucose Calculated Osmolality Calcium Phosphorus Magnesium Troponin I 10.158 H* D 08/31/24 09/01/24 09/01/24 23:32 00:42 05:35 WBC 7.9 RBC 4.12 L Hgb 12.2 L Hct 36.9 L MCV 90 MCH 29.6 MCHC 33.1 RDW Std Deviation 48.2 H Plt Count 153 Neut % (Auto) 67 Lymph % (Auto) 19 [place] % (Auto) 11 Eos % (Auto) 1 Baso % (Auto) 0 Neut # (Auto) 5.3 Lymph # (Auto) 1.5 [place] # (Auto) 0.9 H Eos # (Auto) 0.1 Baso # (Auto) 0.0 Immature Gran # (Auto) 0.03 H Absolute Nucleated RBC 0.00 Immature Gran % 0 Nucleated RBC % 0 PT 11.9 INR 1.1 APTT 63.0 H D 56.5 H Sodium 136 Potassium 4.2 D Chloride 105 Carbon Dioxide 23.5 Anion Gap 8 BUN 19 Creatinine 1.3 Estim Creat Clear Calc 71.4 eGFR 58 L BUN/Creatinine Ratio 15 Glucose 216 H Calculated Osmolality 281 Calcium 9.0 Phosphorus 2.4 Magnesium 2.0 Troponin I 10.037 H* Quality Measures Quality Measures VTE prophylaxis (Heparin drip) and sepsis Current suspected stage: sepsis Possible source: other (multi organ see below) Blood cultures ordered: yes Antibiotic ordered: Yes Advance care planning discussed with:: patient Assessment & Plan Assessment Current Active Medications: Generic Name Dose Route Start Last Admin Trade Name Freq PRN Reason Stop Dose Admin Acetaminophen 650 mg 08/30/24 13:21 08/30/24 21:41 Acetaminophen 325 Mg Tablet PO 09/29/24 13:20 650 mg Q6H PRN Administration pain 1-3 and Fever >100.4 Hydrocodone Bitart/Acetaminophen 1 tab 08/30/24 13:21 Hydrocodone/Apap 5/325 Tablet PO 09/04/24 13:20 Q4HR PRN PAIN SCALE 4-10(Mod-Sev Aspirin 81 mg 08/31/24 09:00 09/01/24 08:41 Aspirin Ec 81 Mg Tabec PO 09/30/24 08:59 81 mg QDAY RASHID Administration Atorvastatin Calcium 40 mg 08/30/24 21:00 08/31/24 20:33 Atorvastatin Calcium 20 Mg Tablet PO 09/29/24 20:59 40 mg HS RASHID Administration Azithromycin 500 mg 08/30/24 14:00 08/31/24 13:42 Azithromycin 250 Mg Tablet PO 09/06/24 13:59 500 mg QDAY@1400 RASHID Administration Dextrose 25 ml 08/30/24 13:21 Dextrose 50%-Water Inj 50 Ml Syringe IV 09/29/24 13:20 Q15MIN PRN BG 50-70 responsive npo pt Dextrose 50 ml 08/30/24 13:21 Dextrose 50%-Water Inj 50 Ml Syringe IV 09/29/24 13:20 Q15MIN PRN BG <50 OR BG <70 & pt unresponsive Glucagon 1 mg 08/30/24 13:21 Glucagon Inj 1 Mg Vial IM Q15MIN PRN BG <70, and no IV access Heparin Sodium/Dextrose 25,000 unit in 250 mls @ 10 mls/hr 08/30/24 13:45 09/01/24 06:43 Heparin In D5w Ivpb IV 09/13/24 13:44 14.47 units/kg/hr .Q24H RASHID 17.131 mls/hr Administration Protocol 8.447 UNITS/KG/HR Ceftriaxone Sodium/Dextrose 50 mls @ 100 mls/hr 08/30/24 13:44 08/31/24 13:43 Rocephin/D5w 1gm Iv Premix IV 09/06/24 13:43 100 mls/hr QDAY@1400 RASHID Administration Insulin Human Lispro 0 unit 08/30/24 17:00 09/01/24 07:35 Insulin Lispro (Admelog) 1 Unit/0.01 Ml Unit SC 09/29/24 16:59 2 unit ACHS RASHID Administration Protocol Ondansetron HCl 4 mg 08/30/24 13:21 09/01/24 07:58 Ondansetron Inj 2 Mg/Ml Inj 2 Ml IV 09/29/24 13:20 4 mg Q6H PRN Administration NAUSEA OR VOMITING Protocol Sennosides 1 tab 08/30/24 13:21 Senna Tablet PO 09/29/24 13:20 QDAY PRN constipation Protocol Plan 74-year-old male with past medical history of DM2, glaucoma, triple-vessel disease (s/p stents 2018), hyperlipidemia, dementia, and hypertension was admitted to the hospital on 08/30/2024 for sepsis secondary to UTI versus community-acquired pneumonia, NSTEMI type I versus type II, and MART. #Sepsis secondary to UTI versus community-acquired pneumonia #UTI #Community-acquired pneumonia ?Patient initially came in with complaints of nausea and vomiting, but was found to have fever, leukocytosis and UTI on urinalysis. ?Patient met SIRS criteria 3 out of 4 with tachycardia, leukocytosis, and fever. ?DDx sepsis likely secondary to UTI given positive UA versus community-acquired pneumonia as CT showed some left base pneumonia ?Chest x-ray did not show any pneumonia ? CT chest/abdomen/pelvis showed mild pneumonia of left base ? UA was positive for bacteria and leukocyte esterase ?WBC 7.9 today -Blood Cx negative in 48 hrs Plan: ?Continue Rocephin 1 g daily and azithromycin 500 mg daily [08/30/2024?] ?Will continue to monitor #NSTEMI type I versus type II? #Hx of triple-vessel disease (s/p stents 2018) #Hx of HLD ?Patient denies any chest pain on admission ?DDx type II given patient is septic and most likely experiencing demand ischemia versus type I given risk factors ?EKG did not show any ST changes -Troponin peaked at 16.44 and downtrended Plan: ?Continue heparin drip [08/30/2024?] ?Continue aspirin and atorvastatin ?Possible Heart cath tomorrow -NPO after midnight ?Cardiology consulted (Dr. Garcia), recommended to continue heparin drip and possible heart cath when sepsis resolves, prior to DC. ?Will continue to monitor #MART, resolved ?DDx prerenal given patient is septic versus intrarenal given patient is having a UTI which could be extending to the kidneys ?Base creatinine 1.1 ?creatinine today 1.3 Plan: ?Avoid nephrotoxic agents ?Renally dose medication ?Will continue to monitor #Normocytic Normochromic anemia -Hgb 12.2 -No signs of bleeding Plan: -will transfuse if Hgb less than 7 -Will continue to monitor #Hx of DM2 ?Blood glucose today 216 ?A1c 7.3% 08/2024 Plan: ?ISS ?Accu-Cheks and hypoglycemic protocol ?Will continue to monitor #Hx of HTN ?Patient's blood pressure has been low in the ED, but has maintained a MAP above 65 and therefore not indicating any active septic shock. ?Holding antihypertensive medications given patient is septic at this time,BP has been controlled in hospital stay. Disposition: Patient Seen in telemetry, continue heparin drip and IV antibiotics, possible heart cath tomorrow, NPO after midnight. Diet: Cardiac/low carb (NPO after midnight) GI prophylaxis: not indicated DVT prophylaxis: On heparin drip Code: Full code Case disclosed with Attending Dr. Nielsen and My senior Dr. Roman PGY2. Anand Morgan PGY1 Attending Provider Attestation/Addendum 74-year-old male with history of type 2 diabetes mellitus, hypertension, hyperlipidemia with subsequent CAD status post stent placement presented to the ER with nausea and vomiting found to have sepsis secondary to UTI and noted to have elevation in troponin with a peak of 16 and thus started on a heparin, aspirin, atorvastatin and pending cardiology input. Plan to continue monitoring the patient in telemetry and consult cardiology. Patient was evaluated by cardiology and recommended cardiac catheterization. Overnight, patient denies any chest pain and nausea improving. I reviewed above note and agree with findings and plans. I have also personally examined the patient with medicine team and went over assessment and plan with medical team including international operations manager and resident physician.
[2024-09-01] MEDS: cefTRIAXone/D5w 1gm IV premix 50 ML IV (13:28)
[2024-09-01] MEDS: AZITHROMYCIN 250 MG TABLET 500 MG PO (13:59)
--- NOTE | 2024-09-01 14:34 | ESPR_ITS ---
Documentation for date of: 09/01/24 Subjective Subjective Interval history: The patient is a 74-year-old male very well known to me, who had angiogram in 2019 with severe multivessel coronary artery disease, chronically occluded RCA and left anterior descending artery with collaterals, mid and distal RCA was totally occluded, total occlusion of distal LAD and severe stenosis of distal circumflex artery, diffuse disease, treated with medical management. Preserved ejection fraction, normal, in senior care bound for more than 5 years, came to the hospital with altered mental status and urinary tract infection, white count elevation as well as findings consistent with urinary tract infection. Also, not having any chest pain, but troponin was quite elevated initially at 3.9, went up to 8.[address]to 16.4. The patient has been started on fluids and antibiotics with some improvement, not complaining of any chest pain or shortness of breath. Labs revealed leukocytosis, urinalysis showed proteinuria, glucosuria and ketones positive with blood and UTI. EKG showed sinus tachycardia rate 115 bpm, evidence of old inferior wall TN, QRS complex in inferior leads, poor R wave progression in precordial leads possible anterior wall TN. No ST depression. No significant changes from previous EKG that was seen on 2021. Chest x-ray was consistent with no evidence of heart failure, mild congestion. CT abdomen pelvis showed no evidence of acute problems, fatty infiltration of liver. Gallstones. PMH: As above Allergies: NKDA Home medications: Carvedilol 3.125 b.i.d, Eye drops Alphagan,Latanoprost eye drops,Januvia 100 mg daily,Timolol eye drops,Metformin 1000 mg b.i.d,Acetaminophen 320 daily,Gabapentin 600 daily,Rosuvastatin 20 mg daily. 08/31/2024: Patient was seen and examined at the bedside. Patient was feeling okay and had no SOB. Morning labs revealed improvement in white count, stable hemoglobin at 12.2. Mild thrombocytopenia platelet 133. Chemistry panel showed slight improvement in creatinine 1.4 today. A1c 7.3. Troponin down trended from 16.4->13.8.Recommended to continue heparin drip for now and will await for resolution of sepsis due to UTI and will likely perform left heart catheterization before discharge to evaluate any new blockage. 09/01/24:'Patient seen at bedside this morning. No overnight events. Patient states feeling well with no chest pain, but he did mentioned he was feeling nauseated and had a vomiting episode overnight and one in the morning. Patient had no spikes in fever and WBC downtrending, We recommended to continue heparin drip and will most likely due heart cath tomorrow.NPO after midnight and hold heparin in morning for left heart cath tomorrow mornng. Exam Vital Signs Temp Pulse Resp BP Pulse Ox O2 Del Method O2 Flow Rate 96.7 F L 95 19 146/98 H 99 Nasal Cannula 4 09/01/24 12:00 09/01/24 12:00 09/01/24 12:00 09/01/24 12:00 09/01/24 12:00 09/01/24 12:00 09/01/24 12:00 Narrative Exam GENERAL APPEARANCE: Patient is AOx3, in no acute distress. HEENT: NC, AT. MMM. EOMI, clear conjunctiva, oropharynx clear. NECK: Supple without lymphadenopathy. No stiffness or restricted ROM. HEART: Regular rate and regular rhythm, normal S1/S2, no m/r/g LUNGS: CTAB, moving air well. No crackles or wheezes are heard. ABDOMEN: Soft, nontender, nondistended with good bowel sounds heard. EXTREMITIES: 1+ pitting edema noticed on both lower extremities. NEUROLOGICAL: Grossly nonfocal. Alert and oriented, moving all 4 extremities. CN not formally tested but appear grossly intact. Skin: Warm and dry without any rash. Psych: Appropriate mood and affect Objective Labs 09/01/24 05:35 09/01/24 05:35 Labs: Laboratory Results - last 24 hr 08/31/24 08/31/24 08/31/24 15:14 16:30 23:32 WBC RBC Hgb Hct MCV MCH MCHC RDW Std Deviation Plt Count Neut % (Auto) Lymph % (Auto) [place] % (Auto) Eos % (Auto) Baso % (Auto) Neut # (Auto) Lymph # (Auto) [place] # (Auto) Eos # (Auto) Baso # (Auto) Immature Gran # (Auto) Absolute Nucleated RBC Immature Gran % Nucleated RBC % PT INR APTT 36.9 H D Sodium Potassium Chloride Carbon Dioxide Anion Gap BUN Creatinine Estim Creat Clear Calc eGFR BUN/Creatinine Ratio Glucose Calculated Osmolality Calcium Phosphorus Magnesium Troponin I 10.158 H* D 10.037 H* 09/01/24 09/01/24 00:42 05:35 WBC 7.9 RBC 4.12 L Hgb 12.2 L Hct 36.9 L MCV 90 MCH 29.6 MCHC 33.1 RDW Std Deviation 48.2 H Plt Count 153 Neut % (Auto) 67 Lymph % (Auto) 19 [place] % (Auto) 11 Eos % (Auto) 1 Baso % (Auto) 0 Neut # (Auto) 5.3 Lymph # (Auto) 1.5 [place] # (Auto) 0.9 H Eos # (Auto) 0.1 Baso # (Auto) 0.0 Immature Gran # (Auto) 0.03 H Absolute Nucleated RBC 0.00 Immature Gran % 0 Nucleated RBC % 0 PT 11.9 INR 1.1 APTT 63.0 H D 56.5 H Sodium 136 Potassium 4.2 D Chloride 105 Carbon Dioxide 23.5 Anion Gap 8 BUN 19 Creatinine 1.3 Estim Creat Clear Calc 71.4 eGFR 58 L BUN/Creatinine Ratio 15 Glucose 216 H Calculated Osmolality 281 Calcium 9.0 Phosphorus 2.4 Magnesium 2.0 Troponin I Quality Measures Quality Measures VTE prophylaxis (Heparin drip) and sepsis Current suspected stage: sepsis Possible source: other (multi organ see below) Blood cultures ordered: yes Antibiotic ordered: Yes Advance care planning discussed with:: patient Assessment & Plan Assessment Current Active Medications: Generic Name Dose Route Start Last Admin Trade Name Freq PRN Reason Stop Dose Admin Acetaminophen 650 mg 08/30/24 13:21 08/30/24 21:41 Acetaminophen 325 Mg Tablet PO 09/29/24 13:20 650 mg Q6H PRN Administration pain 1-3 and Fever >100.4 Hydrocodone Bitart/Acetaminophen 1 tab 08/30/24 13:21 Hydrocodone/Apap 5/325 Tablet PO 09/04/24 13:20 Q4HR PRN PAIN SCALE 4-10(Mod-Sev Aspirin 81 mg 08/31/24 09:00 09/01/24 08:41 Aspirin Ec 81 Mg Tabec PO 09/30/24 08:59 81 mg QDAY RASHID Administration Atorvastatin Calcium 40 mg 08/30/24 21:00 08/31/24 20:33 Atorvastatin Calcium 20 Mg Tablet PO 09/29/24 20:59 40 mg HS RASHID Administration Azithromycin 500 mg 08/30/24 14:00 09/01/24 13:59 Azithromycin 250 Mg Tablet PO 09/06/24 13:59 500 mg QDAY@1400 RASHID Administration Dextrose 25 ml 08/30/24 13:21 Dextrose 50%-Water Inj 50 Ml Syringe IV 09/29/24 13:20 Q15MIN PRN BG 50-70 responsive npo pt Dextrose 50 ml 08/30/24 13:21 Dextrose 50%-Water Inj 50 Ml Syringe IV 09/29/24 13:20 Q15MIN PRN BG <50 OR BG <70 & pt unresponsive Glucagon 1 mg 08/30/24 13:21 Glucagon Inj 1 Mg Vial IM Q15MIN PRN BG <70, and no IV access Heparin Sodium/Dextrose 25,000 unit in 250 mls @ 10 mls/hr 08/30/24 13:45 09/01/24 06:43 Heparin In D5w Ivpb IV 09/13/24 13:44 14.47 units/kg/hr .Q24H RASHID 17.131 mls/hr Administration Protocol 8.447 UNITS/KG/HR Ceftriaxone Sodium/Dextrose 50 mls @ 100 mls/hr 08/30/24 13:44 09/01/24 13:28 Rocephin/D5w 1gm Iv Premix IV 09/06/24 13:43 100 mls/hr QDAY@1400 RASHID Administration Insulin Human Lispro 0 unit 08/30/24 17:00 09/01/24 11:34 Insulin Lispro (Admelog) 1 Unit/0.01 Ml Unit SC 09/29/24 16:59 2 unit ACHS RASHID Administration Protocol Ondansetron HCl 4 mg 08/30/24 13:21 09/01/24 07:58 Ondansetron Inj 2 Mg/Ml Inj 2 Ml IV 09/29/24 13:20 4 mg Q6H PRN Administration NAUSEA OR VOMITING Protocol Sennosides 1 tab 08/30/24 13:21 Senna Tablet PO 09/29/24 13:20 QDAY PRN constipation Protocol Plan This 74-year-old male with past medical history of DM2, glaucoma, triple-vessel disease (s/p stents 2018), hyperlipidemia, dementia, and hypertension was admitted to the hospital on 08/30/2024 for sepsis secondary to UTI versus community-acquired pneumonia, NSTEMI type I versus type II, and MART. # Acute NSTEMI type I with multi vessel coronary artery disease # History of triple-vessel disease post stents 2019 # History of hyperlipidemia ? Patient presented with weakness & complained of nausea and vomiting and was found to have fever, leukocytosis and UTI on urinalysis. Patient met 3/4 SIRS criteria with tachycardia, leukocytosis and fever. Chest x-ray did not show any pneumonia. CT chest abdomen pelvis showed mild pneumonia left base. Procalcitonin and lactic acidosis was seen on admission. ?EKG showed sinus tachycardia rate 115 bpm, evidence of old inferior wall TN, QRS complex in inferior leads, poor R wave progression in precordial leads possible anterior wall TN. No ST depression. ? Left heart catheterization in 2019 showed total occlusion of LAD, RCA and severe diffuse stenosis of distal circumflex artery. ? Morning labs revealed improvement in white count, stable hemoglobin at 12.2. Mild thrombocytopenia platelet 133. Chemistry panel showed slight improvement in creatinine 1.4 today. A1c 7.3. Troponin down trended from 16.4->13.8. Plan: ? We recommended to continue heparin drip and will most likely due heart cath tomorrow.NPO after midnight and hold heparin in morning at 5 AM for left heart cath tomorrow mornng. ? Continue aspirin and statin therapy ? Continue IV antibiotic therapy ? Replete electrolytes as necessary ? Keep magnesium above 2 and potassium above 4 ? Daily labs # Sepsis likely due to urinary tract infection and community-acquired pneumonia # Lactic acidosis type B # MART likely prerenal underlying sepsis # History of hypertension # History of diabetes # Leukocytosis # History of dementia Rest of the management as per primary care team. Thank you very much for consulting cardiology team. Recommended to continue aspirin and statin therapy. Will likely perform left heart catheterization tomorrow morning. N.p.o. after midnight. Hold heparin drip at 5 AM. Plan of care discussed with neonatal social worker, Dr. Jose Oneal MD, PGY 2
[2024-09-01] MEDS: ATORVASTATIN CALCIUM 20 MG TABLET 40 MG PO (20:20)
[2024-09-02] VITALS (21 sets, daily range): BP systolic 93–138; BP diastolic 58–97; PULSE 70–98; RESP 9–20; TEMP 36–36.6; O2SAT 92–100
[2024-09-02 05:51] LABS: Basophils % (Auto) 0 % (0-2.5); Eosinophils # (Auto) 0.1 Thou/mm3 (0.0-0.5); Eosinophils % (Auto) 1 % (0-10); Hematocrit 39.8 % (41.0-53.0); Hemoglobin 13.1 g/dL (13.5-16.0); Immature Granulocytes % (Auto) 0 % (0-0); Immature Granulocytes Auto 0.03 Thou/mm3 (0.00-0.00); Lymphocytes # (Auto) 1.7 Thou/mm3 (1.0-4.8); Lymphocytes % (Auto) 24 % (10-50); Mean Corpuscular HGB Conc 32.9 g/dl (31.0-37.0); Mean Corpuscular Hemoglobin 29.7 pg (25.0-35.0); Mean Corpuscular Volume 90 fL (80-100); Monocytes # (Auto) 0.7 Thou/mm3 (0.0-0.8); Monocytes % (Auto) 10 % (0-12); Neutrophils # (Auto) 4.4 Thou/mm3 (1.8-7.7); Neutrophils % (Auto) 63 % (37-80); Nucleated Red Blood Cell % 0 /100 WBC (0); Platelet Count 179 Thou/mm3 (140-440); RDW Standard Deviation 48.1 fL (35.1-43.9); Red Blood Count 4.41 Miln/mm3 (4.50-5.90); White Blood Count 6.9 Thou/mm3 (3.8-10.6)
[2024-09-02 06:24] LABS: Anion Gap 5 (7-16); BUN/Creatinine Ratio 14 Ratio (12-20); Blood Urea Nitrogen 17 mg/dL (9-23); Calcium 9.2 mg/dL (8.3-10.6); Carbon Dioxide 26.7 mMol/L (20.0-31.0); Chloride 104 mMol/L (98-107); Creatinine (Component) 1.2 mg/dL (0.6-1.3); Estimated Creatinine Clearance 76.4 mL/min (>60); Glucose 225 mg/dL (74-106); Magnesium 2.1 mg/dL (1.6-2.6); Osmolality,Calculated 280 (275-295); Potassium 4.2 mMol/L (3.4-5.1); Sodium 136 mMol/L (136-145); eGFR > 60 See Note
[2024-09-02 06:29] LABS: Partial Thromboplastin Time 55.5 Seconds (22.0-36.0)
[2024-09-02] MEDS: SODIUM CHLORIDE 0.45 % 500 ML 100 ML IV (07:25)
[2024-09-02] MEDS: ONDANSETRON INJ 2 MG/ML INJ 2 ML 4 MG IV (07:26)
--- NOTE | 2024-09-02 08:50 | ECHO_ITS ---
Transthoracic Echo Report Ht (in): 74 Wt (lb): 263 Exam Location: [employer] [facility] Status: Inpatient Bucket Wash Operator: Windy Carvajal Indications: Procedure Performed: BP: 112 / 84 HR: 88 Rhythm: Sinus Technical Quality: Technically difficult study MEASUREMENTS (Male / Female) Normal Values 2D ECHO LV Diastolic Diameter PLAX 5.3 cm 4.2 - 5.9 / 3.9 - 5.3 cm LV Systolic Diameter PLAX 4.1 cm IVS Diastolic Thickness 1.1 cm 0.6 - 1.0 / 0.6 - 0.9 cm LVPW Diastolic Thickness 0.9 cm 0.6 - 1.0 / 0.6 - 0.9 cm LV Relative Wall Thickness 0.4 LVOT Diameter 2.1 cm LA Volume Index 24.7 cm?/m? 16 - 28 cm?/m? Ascending Aorta Diameter 3.4 cm M-MODE Aortic Root Diameter MM 2.9 cm LA Systolic Diameter MM 4.2 cm LA Ao Ratio MM 1.4 AV Cusp Separation MM 2.5 cm DOPPLER AV Peak Velocity 90.4 cm/s AV Peak Gradient 3.3 mmHg AV Mean Gradient 2.0 mmHg AV Velocity Time Integral 15.8 cm LVOT Peak Velocity 61.3 cm/s LVOT Peak Gradient 1.5 mmHg LVOT Velocity Time Integral 10.9 cm LVOT Cardiac Index 1312.9 cm?/min?m? AV Area Cont Eq vti 2.4 cm? AV Area Cont Eq pk 2.3 cm? MV Peak Velocity 94.7 cm/s MV Peak Gradient 3.6 mmHg MV Mean Velocity 52.5 cm/s MV Mean Gradient 1.0 mmHg MV Area PHT 5.8 cm? Mitral E Point Velocity 34.9 cm/s Mitral A Point Velocity 63.1 cm/s Mitral E to A Ratio 0.6 LV E' Lateral Velocity 4.1 cm/s Mitral E to LV E' Lateral Ratio 8.5 LV E' Septal Velocity 4.2 cm/s Mitral E to LV E' Septal Ratio 8.2 FINDINGS Left Ventricle Normal left ventricular size, wall thickness. severe global hypokinesis LVEF 25% Right Ventricle The right ventricle is normal in size and systolic function. Left Atrium The left atrium is normal by two-dimensional, color flow and Doppler imaging with no structural abnormalities, no thrombus formation present. Right Atrium The right atrium is normal by two-dimensional imaging, color flow and Doppler imaging with no struct ural abnormalities, no thrombus formation present. Atrial Septum The interatrial septum appears normal with no evidence of a shunt. Aorta The aorta is normal by two-dimensional, color flow and Doppler interrogation. Mitral Valve The mitral valve is normal by two-dimensional, color flow and Doppler interrogation. There is trace mitral valve regurgitation. Aortic Valve The aortic valve is trileaflet and normal by two-dimensional, color flow and Doppler interrogation. There is no significant aortic valve regurgitation. Tricuspid Valve The tricuspid valve is normal by two-dimensional, color flow and Doppler interrogation. There is tra ce tricuspid valve regurgitation. Pulmonic Valve There is no significant pulmonic valve regurgitation. Vessels The pulmonary artery appears normal. The inferior vena cava pulmonary and hepatic veins appear marce l. Pericardium The pericardium is normal by two-dimensional imaging. There is no significant pericardial effusion. CONCLUSIONS Normal LV size. severe global hypokinesis LVEF 25% Normal RV size and function. Trace MR, TR. Lor Carpenter (Electronically Signed) Final Date: 02 September 2024 17:34
--- NOTE | 2024-09-02 09:13 | PC.NURSE ---
08 patient is awake, alert, breathing unlabored s/p LHC by Dr. Garcia, Dressing to right wrist dry with no bleeding, TR band in place, report received from Riley RN, patient to recover in dairy laboratory technician until TR band removed. Haparin drip stop per RN report.
--- NOTE | 2024-09-02 10:34 | PC.NURSE ---
patient is awake, alert, breathing unlabored, TR band has been removed no bleeding or hematoma noted, Dr. Garcia has talked to patient about plan of care, report given to Patria DAVIS, will get patient ready to go back to room 273
--- NOTE | 2024-09-02 10:56 | PC.NURSE ---
1050 patient is awake, alert, breathing unlabored, no bleeding or hematoma to right wrist, patietn transferred back to room 273 with tele box accompanied by Caesar DAVIS
[2024-09-02] MEDS: INSULIN LISPRO (AdmeLOG) 1 UNIT/0.01 ML UNIT SC ×3 (11:51→20:34)
[2024-09-02] MEDS: ASPIRIN EC 81 MG TABEC PO (12:29)
[2024-09-02] MEDS: AZITHROMYCIN 250 MG TABLET 500 MG PO (13:22)
[2024-09-02] MEDS: cefTRIAXone/D5w 1gm IV premix 50 ML IV (13:22)
--- NOTE | 2024-09-02 14:29 | PC.SS ---
Rounding note: continue heparin drip and possible heart cath.
--- NOTE | 2024-09-02 14:35 | ESOP_ITS ---
RE: RAUL PATEL : 1950 DATE OF OPERATION: 09/02/2024 PROCEDURE PERFORMED: 1. Diagnostic left heart cardiac catheterization, selective coronary angiogram, left ventricular angiogram, CPT 94465. 2. Conscious sedation for 30-minute duration. 3. Ultrasound-guided access right radial artery. DIAGNOSES: Coronary artery disease, acute myocardial infarction, multivessel CAD. HISTORY AND INDICATIONS: The patient is a 74-year-old male with history of known CAD, multivessel CAD in the past, admitted to the hospital with acute non-ST segment elevation myocardial infarction, recurrent chest pain, shortness of breath and congestive heart failure symptoms, hence coronary angiogram was recommended for further assessment. The patient did have significant troponin elevation, double digit elevation and came down. DESCRIPTION OF PROCEDURE: The patient was brought to cardiac catheterization laboratory where he was given 2 mg Versed and 50 mcg of fentanyl for sedation. The right radial area was prepared in sterile fashion. The right radial artery was cannulated with micropuncture technique. A 6-Gambian Glidesheath was introduced. Selective right and left coronary angiogram, left heart catheterization, left ventricular angiogram performed by Johnny radial 5-Gambian catheter and multiple views were obtained. TR band was applied. Hemostasis was secured. Radial cocktail was given consisting of nitroglycerin and heparin. Cardiac catheterization showed following findings: HEMODYNAMICS: Left ventricular pressure 100/10 mmHg, EDP 14 mmHg, aortic pressure 100/70 mmHg. No gradient across the aortic valve. Left ventricular angiogram showed evidence of severe global hypokinesis, basal wall motion is normal, but the entire apex, anteroapical, inferoapical hypokinesis, ejection fraction of 20-25%. Coronary angiogram showed following: Right coronary artery is large and dominant, completely occluded in the proximal segment. Collaterals are visualized. Left coronary system: Left main coronary showed calcification. Distal left main coronary artery showed 80% stenosis just before bifurcation. Left anterior descending artery is totally occluded at mid segment after the first septal branch and diagonal branches, distal LAD filling slowly via collaterals. Circumflex artery is large and gives off large posterolateral branch. There is a moderate 80% stenosis of the mid segment and distal vessel also showed moderate disease. Obtuse marginal branch showed mild to moderate disease. SUMMARY OF FINDINGS AND SUGGESTIONS: 1. Severe triple vessel coronary artery disease and severe distal left main coronary artery stenosis, 80% stenosis. 2. Severe LV dysfunction, ejection fraction 20-25%. 3. Normal LVEDP. RECOMMENDATIONS: The patient has severe left main and severe multivessel coronary artery disease. Recommend medical management. The patient is normally bedbound, not a good candidate for open heart surgery and bypass surgery. The patient also recommended to have surgery. The patient appears to be poor candidate for bypass surgery, definitely not a candidate for stent placement, hence medical management is recommended with aspirin and statin therapy and low-dose beta mary. LAYNE, ARB will be given because of LV dysfunction and short-term and intermittent prognosis is extremely poor and I explained this to the patient and he does not want to go to any open heart surgery, which appears to be high risk anyway. The patient probably will not survive the surgery because of low ejection fraction and considering the patient's clinical status of nonambulatory bed bound status appears to be in appropriate to recommend any revascularization type of bypass surgery. DT: 13:05:10 TT: 13:42:00 Ref: [id number] - TID: [id number]
--- NOTE | 2024-09-02 14:49 | ESPR_ITS ---
<Statement entered by Tom Garcia MD - 09/04/24 09:08> I personally examined the patient along with PGY 2 Dr. Astorgaiq agree with the treatment plan recommendation discussed about options patient not a candidate for bypass surgery and severe multivessel disease left main disease with low ejection fraction high risk for surgery patient also did not want to have surgery hence we will manage medically back to [facility] transfer when bed is available. Documentation for date of: 09/02/24 Subjective Subjective Interval history: The patient is a 74-year-old male very well known to me, who had angiogram in 2019 with severe multivessel coronary artery disease, chronically occluded RCA and left anterior descending artery with collaterals, mid and distal RCA was totally occluded, total occlusion of distal LAD and severe stenosis of distal circumflex artery, diffuse disease, treated with medical management. Preserved ejection fraction, normal, in [facility] bound for more than 5 years, came to the hospital with altered mental status and urinary tract infection, white count elevation as well as findings consistent with urinary tract infection. Also, not having any chest pain, but troponin was quite elevated initially at 3.9, went up to 8.[address]to 16.4. The patient has been started on fluids and antibiotics with some improvement, not complaining of any chest pain or shortness of breath. Labs revealed leukocytosis, urinalysis showed proteinuria, glucosuria and ketones positive with blood and UTI. EKG showed sinus tachycardia rate 115 bpm, evidence of old inferior wall UT, QRS complex in inferior leads, poor R wave progression in precordial leads possible anterior wall UT. No ST depression. No significant changes from previous EKG that was seen on 2021. Chest x-ray was consistent with no evidence of heart failure, mild congestion. CT abdomen pelvis showed no evidence of acute problems, fatty infiltration of liver. Gallstones. PMH: As above Allergies: NKDA Home medications: Carvedilol 3.125 b.i.d, Eye drops Alphagan,Latanoprost eye drops,Januvia 100 mg daily,Timolol eye drops,Metformin 1000 mg b.i.d,Acetaminophen 320 daily,Gabapentin 600 daily,Rosuvastatin 20 mg daily. 08/31/2024: Patient was seen and examined at the bedside. Patient was feeling okay and had no SOB. Morning labs revealed improvement in white count, stable hemoglobin at 12.2. Mild thrombocytopenia platelet 133. Chemistry panel showed slight improvement in creatinine 1.4 today. A1c 7.3. Troponin down trended from 16.4->13.8.Recommended to continue heparin drip for now and will await for resolution of sepsis due to UTI and will likely perform left heart catheterization before discharge to evaluate any new blockage. 09/01/24:'Patient seen at bedside this morning. No overnight events. Patient states feeling well with no chest pain, but he did mentioned he was feeling nauseated and had a vomiting episode overnight and one in the morning. Patient had no spikes in fever and WBC downtrending, We recommended to continue heparin drip and will most likely due heart cath tomorrow.NPO after midnight and hold heparin in morning for left heart cath tomorrow terrie. 09/02/2024: Patient was seen and examined at the bedside. Blood pressure stable. Labs showed hemoglobin stable. Chemistry panel was unremarkable. Patient underwent left heart catheterization which showed left main and severe multivessel CAD. Patient is not a good candidate for open heart surgery and bypass. Patient appears to be a poor candidate for bypass and stent placement. Medical/conservative management recommended with aspirin, statin and low-dose beta-mary with LAYNE/ARB because of LV dysfunction and short term and intermittent prognosis is extremely poor. Patient himself did not want to opt for heart surgery. Primary team was updated. Follow-up on echocardiogram to evaluate cardiac functions. Patient's family needs to be updated regarding the current condition. we started patient on carvedilol 3.125 mg twice daily, Lasix 40 mg p.o. daily and Entresto 1 twice daily. All labs and orders were reviewed. Exam Vital Signs Temp Pulse Resp BP Pulse Ox O2 Del Method O2 Flow Rate 97.0 F 92 17 134/94 H 97 Room Air 1 09/02/24 11:55 09/02/24 11:55 09/02/24 11:55 09/02/24 11:55 09/02/24 11:55 09/02/24 11:55 09/02/24 11:55 Narrative Exam GENERAL APPEARANCE: Patient is AOx3, in no acute distress. HEENT: NC, AT. MMM. EOMI, clear conjunctiva, oropharynx clear. NECK: Supple without lymphadenopathy. No stiffness or restricted ROM. HEART: Regular rate and regular rhythm, normal S1/S2, no m/r/g LUNGS: CTAB, moving air well. No crackles or wheezes are heard. ABDOMEN: Soft, nontender, nondistended with good bowel sounds heard. EXTREMITIES: 1+ pitting edema noticed on both lower extremities. NEUROLOGICAL: Grossly nonfocal. Alert and oriented, moving all 4 extremities. CN not formally tested but appear grossly intact. Skin: Warm and dry without any rash. Psych: Appropriate mood and affect Objective Labs 09/02/24 05:29 09/02/24 05:29 Labs: Laboratory Results - last 24 hr 09/02/24 05:29 WBC 6.9 RBC 4.41 L Hgb 13.1 L Hct 39.8 L MCV 90 MCH 29.7 MCHC 32.9 RDW Std Deviation 48.1 H Plt Count 179 Neut % (Auto) 63 Lymph % (Auto) 24 [place] % (Auto) 10 Eos % (Auto) 1 Baso % (Auto) 0 Neut # (Auto) 4.4 Lymph # (Auto) 1.7 [place] # (Auto) 0.7 Eos # (Auto) 0.1 Baso # (Auto) 0.0 Immature Gran # (Auto) 0.03 H Absolute Nucleated RBC 0.00 Immature Gran % 0 Nucleated RBC % 0 APTT 55.5 H Sodium 136 Potassium 4.2 Chloride 104 Carbon Dioxide 26.7 Anion Gap 5 L BUN 17 Creatinine 1.2 Estim Creat Clear Calc 76.4 eGFR > 60 BUN/Creatinine Ratio 14 Glucose 225 H Calculated Osmolality 280 Calcium 9.2 Phosphorus 3.0 Magnesium 2.1 Quality Measures Quality Measures VTE prophylaxis (Heparin drip) and sepsis Current suspected stage: sepsis Possible source: other (multi organ see below) Blood cultures ordered: yes Antibiotic ordered: Yes Advance care planning discussed with:: patient Assessment & Plan Assessment Current Active Medications: Generic Name Dose Route Start Last Admin Trade Name Freq PRN Reason Stop Dose Admin Acetaminophen 650 mg 08/30/24 13:21 08/30/24 21:41 Acetaminophen 325 Mg Tablet PO 09/29/24 13:20 650 mg Q6H PRN Administration pain 1-3 and Fever >100.4 Hydrocodone Bitart/Acetaminophen 1 tab 08/30/24 13:21 Hydrocodone/Apap 5/325 Tablet PO 09/04/24 13:20 Q4HR PRN PAIN SCALE 4-10(Mod-Sev Aspirin 81 mg 08/31/24 09:00 09/02/24 12:29 Aspirin Ec 81 Mg Tabec PO 09/30/24 08:59 81 mg QDAY RASHID Administration Atorvastatin Calcium 40 mg 08/30/24 21:00 09/01/24 20:20 Atorvastatin Calcium 20 Mg Tablet PO 09/29/24 20:59 40 mg HS RASHID Administration Azithromycin 500 mg 08/30/24 14:00 09/02/24 13:22 Azithromycin 250 Mg Tablet PO 09/06/24 13:59 500 mg QDAY@1400 RASHID Administration Dextrose 25 ml 08/30/24 13:21 Dextrose 50%-Water Inj 50 Ml Syringe IV 09/29/24 13:20 Q15MIN PRN BG 50-70 responsive npo pt Dextrose 50 ml 08/30/24 13:21 Dextrose 50%-Water Inj 50 Ml Syringe IV 09/29/24 13:20 Q15MIN PRN BG <50 OR BG <70 & pt unresponsive Glucagon 1 mg 08/30/24 13:21 Glucagon Inj 1 Mg Vial IM Q15MIN PRN BG <70, and no IV access Ceftriaxone Sodium/Dextrose 50 mls @ 100 mls/hr 08/30/24 13:44 09/02/24 13:22 Rocephin/D5w 1gm Iv Premix IV 09/06/24 13:43 100 mls/hr QDAY@1400 RASHID Administration Insulin Human Lispro 0 unit 08/30/24 17:00 09/02/24 11:51 Insulin Lispro (Admelog) 1 Unit/0.01 Ml Unit SC 09/29/24 16:59 2 unit ACHS RASHID Administration Protocol Ondansetron HCl 4 mg 08/30/24 13:21 09/02/24 07:26 Ondansetron Inj 2 Mg/Ml Inj 2 Ml IV 09/29/24 13:20 4 mg Q6H PRN Administration NAUSEA OR VOMITING Protocol Sennosides 1 tab 08/30/24 13:21 Senna Tablet PO 09/29/24 13:20 QDAY PRN constipation Protocol Plan This 74-year-old male with past medical history of DM2, glaucoma, triple-vessel disease (s/p stents 2018), hyperlipidemia, dementia, and hypertension was admitted to the hospital on 08/30/2024 for sepsis secondary to UTI versus community-acquired pneumonia, NSTEMI type I versus type II, and MART. # Left main and severe multivessel CAD # Acute NSTEMI type I # History of triple-vessel disease post stents 2019 # History of hyperlipidemia ? Patient presented with weakness & complained of nausea and vomiting and was found to have fever, leukocytosis and UTI on urinalysis. Patient met 3/4 SIRS criteria with tachycardia, leukocytosis and fever. Chest x-ray did not show any pneumonia. CT chest abdomen pelvis showed mild pneumonia left base. Procalcitonin and lactic acidosis was seen on admission. ?EKG showed sinus tachycardia rate 115 bpm, evidence of old inferior wall UT, QRS complex in inferior leads, poor R wave progression in precordial leads possible anterior wall UT. No ST depression. ? Left heart catheterization in 2019 showed total occlusion of LAD, RCA and severe diffuse stenosis of distal circumflex artery. ? Morning labs revealed improvement in white count, stable hemoglobin at 12.2. Mild thrombocytopenia platelet 133. Chemistry panel showed slight improvement in creatinine 1.4 today. A1c 7.3. Troponin down trended from 16.4->13.8. Echo showed Normal LV size. severe global hypokinesis LVEF 25% Normal RV size and function. Trace MR, TR. Plan: we started patient on carvedilol 3.125 mg twice daily, Lasix 40 mg p.o. daily and Entresto 1 twice daily. ? Patient underwent left heart catheterization which showed left main and severe multivessel CAD. Patient is not a good candidate for open heart surgery and bypass. Patient appears to be a poor candidate for bypass and stent placement. Medical/conservative management recommended with aspirin, statin and low-dose beta-mary with LAYNE/ARB because of LV dysfunction and short term and intermittent prognosis is extremely poor. ? Continue aspirin and statin therapy ? Continue IV antibiotic therapy ? Replete electrolytes as necessary ? Keep magnesium above 2 and potassium above 4 ? Daily labs # Sepsis likely due to urinary tract infection and community-acquired pneumonia # Lactic acidosis type B # MART likely prerenal underlying sepsis # History of hypertension # History of diabetes # Leukocytosis # History of dementia Rest of the management as per primary care team. Thank you very much for consulting cardiology team. Patient underwent left heart catheterization which showed left main and severe multivessel CAD. Patient is not a good candidate for open heart surgery and bypass. Patient appears to be a poor candidate for bypass and stent placement. Medical/conservative management recommended with aspirin, statin and low-dose beta-mary with LAYNE/ARB because of LV dysfunction and short term and intermittent prognosis is extremely poor. Will follow-up on echocardiogram. Primary team updated. Plan of care discussed with spotter driver, Dr. Jose Oneal MD, PGY 2
--- NOTE | 2024-09-02 17:13 | ESPR_ITS ---
<Statement entered by Len Roman MD - 09/03/24 09:13> Senior Resident Attestation: I supervised/discussed management plan with internal communications intern physician Dr. Byrd, and was involved in the care of this patient. I personally saw and examined the patient and discussed the assessment and plan with the entire medicine team, including my attending. I agree with the assessment and plan as documented. Patient's care was discussed with attending physician, Dr. Nielsen. Len Roman MD PGY-2. Documentation for date of: 09/02/24 Subjective Subjective Interval history: Patient was seen at bedside today. No overnight events. Patient underwent PCI today and was found to have left main and severe multivessel CAD and an ejection fraction of 20 to 25%. Cardiology deemed patient not a surgical candidate for bypass surgery or state placement therefore medical management with aspirin and statin and low-dose beta-mary. Patient had no spikes in fevers or WBC today. No other complaints at this time. Exam Vital Signs Temp Pulse Resp BP Pulse Ox O2 Del Method O2 Flow Rate 96.8 F 87 16 133/77 H 96 Room Air 0 09/02/24 16:00 09/02/24 16:00 09/02/24 16:00 09/02/24 16:00 09/02/24 16:00 09/02/24 16:00 09/02/24 16:00 Narrative Exam General: A/O x3, no acute distress, obese Eyes: PERRL, EOMI. Anicteric, vision impaired. Ears: No ear pain, no ear discharge, Hearing grossly intact. Nose: No nasal discharge. Mouth/Throat: Dry mucous membranes, no redness, no lesions. Neck: short neck , non-tender, no cervical lymphadenopathy. Lungs: Clear LUPILLO to auscultation and percussion, No accessory muscle use. Cardio: Normal S1/S2, regular rhythm, no murmurs, no JVD Abdomen: Soft, but distended, no palpable masses, peristalsis present, no guarding or rebound. Extremities: Symmetrical, no significant deformities, still 1+ peripheral edema , non-tender, peripheral pulses presents. Skin: No rashes, no lesions, warm to touch. Neuro: No focal neurological deficits. able to follow commands, able to move all extremities. Psych:flat effect Objective Labs 09/03/24 08:25 09/03/24 08:25 Labs: Laboratory Results - last 24 hr 09/02/24 05:29 WBC 6.9 RBC 4.41 L Hgb 13.1 L Hct 39.8 L MCV 90 MCH 29.7 MCHC 32.9 RDW Std Deviation 48.1 H Plt Count 179 Neut % (Auto) 63 Lymph % (Auto) 24 [place] % (Auto) 10 Eos % (Auto) 1 Baso % (Auto) 0 Neut # (Auto) 4.4 Lymph # (Auto) 1.7 [place] # (Auto) 0.7 Eos # (Auto) 0.1 Baso # (Auto) 0.0 Immature Gran # (Auto) 0.03 H Absolute Nucleated RBC 0.00 Immature Gran % 0 Nucleated RBC % 0 APTT 55.5 H Sodium 136 Potassium 4.2 Chloride 104 Carbon Dioxide 26.7 Anion Gap 5 L BUN 17 Creatinine 1.2 Estim Creat Clear Calc 76.4 eGFR > 60 BUN/Creatinine Ratio 14 Glucose 225 H Calculated Osmolality 280 Calcium 9.2 Phosphorus 3.0 Magnesium 2.1 Quality Measures Quality Measures VTE prophylaxis (Heparin drip) and sepsis Current suspected stage: sepsis Possible source: other (multi organ see below) Blood cultures ordered: yes Antibiotic ordered: Yes Advance care planning discussed with:: patient Assessment & Plan Assessment Current Active Medications: Generic Name Dose Route Start Last Admin Trade Name Freq PRN Reason Stop Dose Admin Acetaminophen 650 mg 08/30/24 13:21 08/30/24 21:41 Acetaminophen 325 Mg Tablet PO 09/29/24 13:20 650 mg Q6H PRN Administration pain 1-3 and Fever >100.4 Hydrocodone Bitart/Acetaminophen 1 tab 08/30/24 13:21 Hydrocodone/Apap 5/325 Tablet PO 09/04/24 13:20 Q4HR PRN PAIN SCALE 4-10(Mod-Sev Aspirin 81 mg 08/31/24 09:00 09/02/24 12:29 Aspirin Ec 81 Mg Tabec PO 09/30/24 08:59 81 mg QDAY RASHID Administration Atorvastatin Calcium 40 mg 08/30/24 21:00 09/01/24 20:20 Atorvastatin Calcium 20 Mg Tablet PO 09/29/24 20:59 40 mg HS RASHID Administration Azithromycin 500 mg 08/30/24 14:00 09/02/24 13:22 Azithromycin 250 Mg Tablet PO 09/06/24 13:59 500 mg QDAY@1400 RASHID Administration Dextrose 25 ml 08/30/24 13:21 Dextrose 50%-Water Inj 50 Ml Syringe IV 09/29/24 13:20 Q15MIN PRN BG 50-70 responsive npo pt Dextrose 50 ml 08/30/24 13:21 Dextrose 50%-Water Inj 50 Ml Syringe IV 09/29/24 13:20 Q15MIN PRN BG <50 OR BG <70 & pt unresponsive Glucagon 1 mg 08/30/24 13:21 Glucagon Inj 1 Mg Vial IM Q15MIN PRN BG <70, and no IV access Ceftriaxone Sodium/Dextrose 50 mls @ 100 mls/hr 08/30/24 13:44 09/02/24 13:22 Rocephin/D5w 1gm Iv Premix IV 09/06/24 13:43 100 mls/hr QDAY@1400 RASHID Administration Insulin Human Lispro 0 unit 08/30/24 17:00 09/02/24 16:39 Insulin Lispro (Admelog) 1 Unit/0.01 Ml Unit SC 09/29/24 16:59 3 unit ACHS RASHID Administration Protocol Ondansetron HCl 4 mg 08/30/24 13:21 09/02/24 07:26 Ondansetron Inj 2 Mg/Ml Inj 2 Ml IV 09/29/24 13:20 4 mg Q6H PRN Administration NAUSEA OR VOMITING Protocol Sennosides 1 tab 08/30/24 13:21 Senna Tablet PO 09/29/24 13:20 QDAY PRN constipation Protocol Plan 74-year-old male with past medical history of DM2, glaucoma, triple-vessel disease (s/p stents 2018), hyperlipidemia, dementia, and hypertension was admitted to the hospital on 08/30/2024 for sepsis secondary to UTI versus community-acquired pneumonia, NSTEMI type I versus type II, and MART. #Sepsis secondary to UTI versus community-acquired pneumonia #UTI #Community-acquired pneumonia ?Patient initially came in with complaints of nausea and vomiting, but was found to have fever, leukocytosis and UTI on urinalysis. ?Patient met SIRS criteria 3 out of 4 with tachycardia, leukocytosis, and fever. ?DDx sepsis likely secondary to UTI given positive UA versus community-acquired pneumonia as CT showed some left base pneumonia ?Chest x-ray did not show any pneumonia ? CT chest/abdomen/pelvis showed mild pneumonia of left base ? UA was positive for bacteria and leukocyte esterase ?WBC 6.9 today -Blood Cx negative in 48 hrs Plan: ?Continue Rocephin 1 g daily and azithromycin 500 mg daily [08/30/2024?] ?Will continue to monitor #NSTEMI type I versus type II? #Multivessel CAD #HFrEF (EF 20-25%) #Hx of triple-vessel disease (s/p stents 2018) #Hx of HLD ?Patient denies any chest pain on admission ?DDx type II given patient is septic and most likely experiencing demand ischemia versus type I given risk factors ?EKG did not show any ST changes -Troponin peaked at 16.44 and downtrended ? Heart cath showed multivessel disease as well as EF of 20 to 25% ? Patient is not a good surgical candidate at this time for bypass surgery for stent placement as per composition molder. Plan: ?Stopped heparin drip [08/30/2024?09/02/2024] ?Started Carvedilol 3.125 mg twice daily and Entresto and lasix 40mg qday ?Continue aspirin and atorvastatin ?Cardiology consulted (Dr. Garcia), recommended to continue heparin drip and possible heart cath when sepsis resolves, prior to DC. ?Will continue to monitor #MART, resolved ?DDx prerenal given patient is septic versus intrarenal given patient is having a UTI which could be extending to the kidneys ?Base creatinine 1.1 ?creatinine today 1.2 Plan: ?Avoid nephrotoxic agents ?Renally dose medication ?Will continue to monitor #Normocytic Normochromic anemia -Hgb 13.1 -No signs of bleeding Plan: -will transfuse if Hgb less than 7 -Will continue to monitor #Hx of DM2 ?Blood glucose today 225 ?A1c 7.3% 08/2024 Plan: ?ISS ?Accu-Cheks and hypoglycemic protocol ?Will continue to monitor #Hx of HTN ?Patient's blood pressure has been low in the ED, but has maintained a MAP above 65 and therefore not indicating any active septic shock. ?Holding antihypertensive medications given patient is septic at this time,BP has been controlled in hospital stay. Disposition: Patient Seen in telemetry, stopped heparin drip, continue IV antibiotics. Diet: Cardiac/low carb GI prophylaxis: not indicated DVT prophylaxis: heparin sc Code: Full code Case disclosed with Attending Dr. Nielsen and My senior Dr. Roman PGY2. Anand Morgan PGY1 Attending Provider Attestation/Addendum 74-year-old male with history of type 2 diabetes mellitus, hypertension, hyperlipidemia with subsequent CAD status post stent placement presented to the ER with nausea and vomiting found to have sepsis secondary to UTI and noted to have elevation in troponin with a peak of 16 and thus started on a heparin, aspirin, atorvastatin and pending cardiology input. Plan to continue monitoring the patient in telemetry and consult cardiology. Patient was evaluated by cardiology and recommended cardiac catheterization. Currently, patient is status post cardiac catheterization with findings of severe multivessel disease not amendable to stent or CABG. Cardiology recommended medical management. Currently, patient appears to be comfortable. I reviewed above note and agree with findings and plans. I have also personally examined the patient with medicine team and went over assessment and plan with medical team including internal communications intern and resident physician.
[2024-09-02] MEDS: carVEDILOL 3.125 MG TABLET PO (18:15)
[2024-09-02] MEDS: Furosemide 40 MG TABLET PO (18:15)
[2024-09-02] MEDS: ATORVASTATIN CALCIUM 20 MG TABLET 40 MG PO (20:05)
[2024-09-02] MEDS: SACUBITRIL 24 MG/VALSARTAN 26 MG TABLET 1 TAB PO (20:05)
[2024-09-02] MEDS: HEPARIN SOD INJ 5000 UNIT/ML VIAL SC (20:35)
[2024-09-03] VITALS (9 sets, daily range): BP systolic 109–129; BP diastolic 76–95; PULSE 72–104; RESP 15–97; TEMP 36.1–36.4; O2SAT 94–97
[2024-09-03] MEDS: HEPARIN SOD INJ 5000 UNIT/ML VIAL SC ×2 (05:45→13:26)
[2024-09-03] MEDS: Furosemide 40 MG TABLET PO (08:00)
[2024-09-03] MEDS: SACUBITRIL 24 MG/VALSARTAN 26 MG TABLET 1 TAB PO (08:00)
[2024-09-03] MEDS: ASPIRIN EC 81 MG TABEC PO (08:00)
[2024-09-03] MEDS: INSULIN LISPRO (AdmeLOG) 1 UNIT/0.01 ML UNIT SC ×3 (08:01→16:38)
[2024-09-03] MEDS: carVEDILOL 3.125 MG TABLET PO ×2 (08:01→17:17)
[2024-09-03 08:41] LABS: Basophils % (Auto) 0 % (0-2.5); Eosinophils # (Auto) 0.1 Thou/mm3 (0.0-0.5); Eosinophils % (Auto) 2 % (0-10); Hematocrit 43.3 % (41.0-53.0); Hemoglobin 14.6 g/dL (13.5-16.0); Immature Granulocytes % (Auto) 0 % (0-0); Immature Granulocytes Auto 0.03 Thou/mm3 (0.00-0.00); Lymphocytes # (Auto) 1.8 Thou/mm3 (1.0-4.8); Lymphocytes % (Auto) 26 % (10-50); Mean Corpuscular HGB Conc 33.7 g/dl (31.0-37.0); Mean Corpuscular Volume 89 fL (80-100); Monocytes # (Auto) 0.7 Thou/mm3 (0.0-0.8); Monocytes % (Auto) 9 % (0-12); Neutrophils # (Auto) 4.3 Thou/mm3 (1.8-7.7); Neutrophils % (Auto) 62 % (37-80); Nucleated Red Blood Cell % 0 /100 WBC (0); Platelet Count 194 Thou/mm3 (140-440); RDW Standard Deviation 46.6 fL (35.1-43.9); Red Blood Count 4.86 Miln/mm3 (4.50-5.90)
--- NOTE | 2024-09-03 09:20 | PC.SS ---
Updated clinicals submitted to SNF via [employer]. Patient possible discharge for today.
[2024-09-03 09:33] LABS: Alanine Aminotransferase 11 U/L (10-49); Albumin, Serum 4.1 gm/dL (3.4-4.8); Albumin/Globulin Ratio 1.2 (1.2-2.2); Alkaline Phosphatase 63 U/L (46-116); Anion Gap 6 (7-16); Aspartate Amino Transferase 13 U/L (0-34); BUN/Creatinine Ratio 14 Ratio (12-20); Bilirubin,Total 0.5 mg/dL (0.3-1.2); Blood Urea Nitrogen 20 mg/dL (9-23); Calcium 9.6 mg/dL (8.3-10.6); Calcium (Corrected) 9.6 mg/dL (8.5-10.1); Carbon Dioxide 28.9 mMol/L (20.0-31.0); Chloride 101 mMol/L (98-107); Creatinine (Component) 1.4 mg/dL (0.6-1.3); Estimated Creatinine Clearance 65.1 mL/min (>60); Globulin 3.4 gm/dL (2.3-3.5); Glucose 269 mg/dL (74-106); Osmolality,Calculated 283 (275-295); Potassium 4.4 mMol/L (3.4-5.1); Sodium 136 mMol/L (136-145); Total Protein 7.5 gm/dL (5.7-8.2); eGFR 53 See Note
--- NOTE | 2024-09-03 09:34 | PC.SS ---
Update: Plan is for the patient to discharge to SNF today.
--- NOTE | 2024-09-03 09:51 | PC.SS ---
[facility] [employer] contacted [facility] to initiate transport on behalf of the patient. [place] identified transporter. Reference # [id number]. Documentation submitted on [facility].
--- NOTE | 2024-09-03 10:20 | PC.NURSE ---
remove coban from R.wrist.no bleeding ,bruising noted.
--- NOTE | 2024-09-03 10:44 | PC.SS ---
MACHINE JOINER CEMENTER scheduled ambulance transport for 03:00 pm today. Pending [employer] authorization.
[2024-09-03] MEDS: CLOPIDOGREL BISULFATE 75 MG TABLET PO (11:13)
[2024-09-03] MEDS: cefTRIAXone/D5w 1gm IV premix 50 ML IV (13:25)
[2024-09-03] MEDS: AZITHROMYCIN 250 MG TABLET 500 MG PO (13:25)
--- NOTE | 2024-09-03 13:37 | PD.RESDS ---
Planned Discharge Date 09/03/24 DS: Providers Provider Date of admission: 08/30/24 13:21 Primary care physician: Salo Delacruz MD Admitting Provider: Elier Nielsen MD Attending Provider on Admission: Elier Nielsen MD Consults: 08/30/24 12:51 Consult to Cardiology Stat Comment: Consulting Provider: Tom Garcia Attending Provider on DC: Elier Nielsen MD Discharging Provider: Elier Nielsen MD DS: Diagnosis Problem List Completed Was Problem List Reviewed/Reconciled?: Yes Hospital Course Hospital Course Hospital course: 74-year-old male with past medical history of DM2, glaucoma, triple-vessel disease (s/p stents 2018), hyperlipidemia, dementia, and hypertension was admitted to the hospital on 08/30/2024 for sepsis secondary to UTI versus community-acquired pneumonia, NSTEMI type I, and MART. Patient came to the ED from [facility] with complaints of nausea and vomiting which started night prior to admission. Initially came in tachycardic, febrile, and hypotensive. Initial labs were relevant for leukocytosis, MART, hyperglycemia, troponemia, elevated procalcitonin, and UTI. Initial imaging included chest x-ray which did not show any pneumonia, but this showed mild vascular congestion. Additional chest/abdomen/pelvis CT showed heavy calcification of LAD, mild pneumonia of left base, minimal bilateral pleural fluid, atrophic kidneys, cholelithiasis, and urinary bladder wall thickening. EKG showed sinus tachycardia. [address] Vendor Dr. Garcia was consulted and given patient's elevated troponins and given patient's history of triple-vessel disease. The patient was placed on heparin drip as per cardiology recommendations and he later on got a heart cath after his blood cultures came back negative and his sepsis was treated with IV antibiotics. Heart cath showed that the patient had left main and multivessel CAD with an EF of 20-25% and that per truckman he was a poor candidate for bypass surgery and stent placement therefore medical management with aspirin and statin as well as low-dose beta-mary was advised. Patient's prognosis is very poor at this time and I asked the patient if he wanted me to speak with any family member at this time, but he stated that his sister would was going to come into the hospital in person and that I could speak with her at this time. Given patient's current condition and him being a full code his CODE STATUS was addressed and explained everything in detail with all questions asked answered and patient's CODE STATUS remains FULL CODE for now. At the time of discharge patient was stable enough to be discharged back to a half-way facility. Discharge plan: Follow up with PCP and cardiology within 1-2 weeks. Take cephalexin 1 tab twice daily for 4 days. Start taking Lasix, Entresto, Coreg, potassium, plavix, and atorvastatin as prescribed. Continue other home medications as prescribed. Problem list: #Sepsis secondary to UTI versus community-acquired pneumonia #NSTEMI type I #Multivessel CAD #HFrEF (EF 20-25%) #MART, resolved #UTI #Community-acquired pneumonia #Normocytic Normochromic anemia #Hx of HTN #Hx of DM2 #Hx of triple-vessel disease (s/p stents 2019) #Hx of HLD Case disclosed with Attending Dr. Nielsen and My senior Dr. Roman PGY2. Anand Morgan PGY1 Status at Discharge Overall status at discharge: patient is progressing back to baseline Time Spent with Patient Time attestation: Total time spent providing and/or coordinating discharge services:>35 min Exam Vital Signs Temp Pulse Resp BP Pulse Ox O2 Del Method O2 Flow Rate 97.6 F 104 H 17 111/78 94 L Room Air 0 09/03/24 12:00 09/03/24 12:00 09/03/24 12:00 09/03/24 12:00 09/03/24 12:00 09/03/24 12:00 09/02/24 16:00 Narrative Exam General: A/O x3, no acute distress, obese Eyes: PERRL, EOMI. Anicteric, vision impaired. Ears: No ear pain, no ear discharge, Hearing grossly intact. Nose: No nasal discharge. Mouth/Throat: Dry mucous membranes, no redness, no lesions. Neck: short neck , non-tender, no cervical lymphadenopathy. Lungs: Clear LUPILLO to auscultation and percussion, No accessory muscle use. Cardio: Normal S1/S2, regular rhythm, no murmurs, no JVD Abdomen: Soft, but distended, no palpable masses, peristalsis present, no guarding or rebound. Extremities: Symmetrical, no significant deformities, still 1+ peripheral edema , non-tender, peripheral pulses presents. Skin: No rashes, no lesions, warm to touch. Neuro: No focal neurological deficits. able to follow commands, able to move all extremities. Psych:flat effect Discharge Plan Plan Patient Disposition: Xfer Skilled Nsg Fac (SNF) Patient condition on transfer: Stable Care Plan Goals: Follow up with PCP and cardiology within 1-2 weeks. Take cephalexin 1 tab twice daily for 4 days. Start taking Lasix, Entresto, Coreg, potassium, plavix, and atorvastatin as prescribed. Continue other home medications as prescribed. Prescriptions/Referrals Prescriptions/Med Rec: New potassium chloride 10 mEq packet 10 meq PO QDAY Qty: 30 0RF Entresto 24-26 mg Tablet 1 tab PO BID Qty: 60 0RF furosemide 40 mg Tablet 40 mg PO QDAY Qty: 30 0RF atorvastatin 20 mg Tablet 40 mg PO HS Qty: 60 0RF aspirin 81 mg Tablet,Delayed Release (Dr/Ec) 81 mg PO QDAY Qty: 30 0RF carvedilol 3.125 mg Tablet 3.125 mg PO BIDWM Qty: 60 0RF cephalexin 500 mg capsule 500 mg PO BID 4 Days Qty: 8 0RF clopidogrel [Plavix] 75 mg tablet 75 mg PO QDAY 30 Days Qty: 30 1RF Continued metformin 1,000 mg tablet 1 tab PO BID latanoprost 0.005 % Drops 1 drp OPHTHALMIC (EYE) QPM Rx Instructions: BOTH EYES timolol maleate 0.5 % Drops 1 drp OPHTHALMIC (EYE) BID Rx Instructions: BOTH EYES duloxetine [Cymbalta] 30 mg Capsule,Delayed Release(Dr/Ec) 30 mg PO QDAY brimonidine [Alphagan P] 0.1 % Drops 1 drp OPHTHALMIC (EYE) BID Rx Instructions: Instill 1 drop in both eyes two times a day Januvia 100 mg Tablet 100 mg PO QDAY bisacodyl [Dulcolax (bisacodyl)] 10 mg Suppository 10 mg OH QDAY PRN (Reason: Constipation) Rx Instructions: If MOM is ineffective Fleet Enema 19-7 gram/118 mL Enema 118 ml OH QDAY PRN (Reason: Constipation) Rx Instructions: If dulcolax is ineffective docusate sodium 250 mg Capsule 250 mg PO QDAY acetaminophen [Tylenol] 325 mg Tablet 325 mg PO Q6HR PRN (Reason: Pain (Scale Score 1-3)) hydrocodone-acetaminophen 10-325 mg Tablet 1 tab PO Q6H PRN (Reason: Pain (Scale Score 4-6)) magnesium hydroxide [Milk of Magnesia] 400 mg/5 mL Suspension 30 ml PO Q72H PRN (Reason: Constipation) gabapentin [Neurontin] 800 mg Tablet 800 mg PO TID hydroxyzine HCl 25 mg Tablet 12.5 mg PO Q6H PRN (Reason: Itching) ondansetron 4 mg Tablet,Disintegrating 4 mg PO Q6H PRN (Reason: Nausea) tamsulosin [Flomax] 0.4 mg capsule 0.4 mg PO QDAY Qty: 30 0RF finasteride 5 mg tablet 5 mg PO QDAY Qty: 30 0RF Discontinued carvedilol 3.125 mg Tablet 3.125 mg PO BID Rx Instructions: Hold SBP <110 or pulse <60 aspirin 325 mg Tablet 325 mg PO QDAY rosuvastatin 20 mg Tablet 20 mg PO HS Referrals: Salo Delacruz MD [Primary Care Provider] - Patient/Caregiver Discharge Instructions Other Discharge Activity Instructions:: remove tegaderm dressing to R.pattirst 09/04/24 @1020.Post PCI care Education Materials: Urinary Tract Infections in Men, Heart Attack Dc, Discharge Instructions for ..., Preventing Surgical Site Infections, Heart Attack Meds, Warning Signs of a Heart Attack Print Language: Ukrainian Stand Alone Forms: Olivia Award Info., Patient Portal Info Letter Discharge Order Discharge Orders: Discharge (Routine); Ordered 09/03/24 Ordered By: Len Roman Quality Discharge Quality Measures VTE prophylaxis Attestestation Attestation 74-year-old male with history of type 2 diabetes mellitus, hypertension, hyperlipidemia with subsequent CAD status post stent placement presented to the ER with nausea and vomiting found to have sepsis secondary to UTI and noted to have elevation in troponin with a peak of 16 and thus started on a heparin, aspirin, atorvastatin and pending cardiology input. Plan to continue monitoring the patient in telemetry and consult cardiology. Patient was evaluated by cardiology and recommended cardiac catheterization. Currently, patient is status post cardiac catheterization with findings of severe multivessel disease not amendable to stent or CABG. Cardiology recommended medical management. I did discuss these findings with the patient, his sister and son at bedside and updated them about the cardiac catheterization finding and given poor prognosis. I also discussed goals of care with the patient and he stated he wants to be full code although I did update him that given his extensive coronary artery disease he has poor prognosis and if he was to have a cardiac arrest it would most likely be to massive NM however stated that he wants to be full code and will discuss with his primary care physician regarding further goals of care as I did recommend that he should be DNR/DNI however we will respect his decision and proceed with full code for now. I reviewed above note and agree with findings and plans. I have also personally examined the patient with medicine team and went over assessment and plan with medical team including international exchange coordinator and resident physician.
--- NOTE | 2024-09-03 13:52 | PC.SS ---
MIND READER notified patient, patient's sister, bedside nurse and SNF that patient will be transported back to facility at 03:00 pm today.
--- NOTE | 2024-09-03 14:55 | ESPR_ITS ---
<Statement entered by Tom Garcia MD - 09/06/24 13:00> I examined the patient evaluated the patient continues to feel well he has no chest pain or shortness but has severe left main disease severe multivessel coronary disease not suitable for bypass surgery not a candidate for valve surgery hence decided to medical management discharged to longterm facility possible hospice care to be considered. I evaluated the patient personally and reviewed the note agree with the treatment plan recommendation as documented by PGY 2 Dr. Oneal Documentation for date of: 09/03/24 Subjective Subjective Interval history: The patient is a 74-year-old male very well known to me, who had angiogram in 2019 with severe multivessel coronary artery disease, chronically occluded RCA and left anterior descending artery with collaterals, mid and distal RCA was totally occluded, total occlusion of distal LAD and severe stenosis of distal circumflex artery, diffuse disease, treated with medical management. Preserved ejection fraction, normal, in custodial bound for more than 5 years, came to the hospital with altered mental status and urinary tract infection, white count elevation as well as findings consistent with urinary tract infection. Also, not having any chest pain, but troponin was quite elevated initially at 3.9, went up to 8.[address]to 16.4. The patient has been started on fluids and antibiotics with some improvement, not complaining of any chest pain or shortness of breath. Labs revealed leukocytosis, urinalysis showed proteinuria, glucosuria and ketones positive with blood and UTI. EKG showed sinus tachycardia rate 115 bpm, evidence of old inferior wall CO, QRS complex in inferior leads, poor R wave progression in precordial leads possible anterior wall CO. No ST depression. No significant changes from previous EKG that was seen on 2021. Chest x-ray was consistent with no evidence of heart failure, mild congestion. CT abdomen pelvis showed no evidence of acute problems, fatty infiltration of liver. Gallstones. PMH: As above Allergies: NKDA Home medications: Carvedilol 3.125 b.i.d, Eye drops Alphagan,Latanoprost eye drops,Januvia 100 mg daily,Timolol eye drops,Metformin 1000 mg b.i.d,Acetaminophen 320 daily,Gabapentin 600 daily,Rosuvastatin 20 mg daily. 08/31/2024: Patient was seen and examined at the bedside. Patient was feeling okay and had no SOB. Morning labs revealed improvement in white count, stable hemoglobin at 12.2. Mild thrombocytopenia platelet 133. Chemistry panel showed slight improvement in creatinine 1.4 today. A1c 7.3. Troponin down trended from 16.4->13.8.Recommended to continue heparin drip for now and will await for resolution of sepsis due to UTI and will likely perform left heart catheterization before discharge to evaluate any new blockage. 09/01/24:'Patient seen at bedside this morning. No overnight events. Patient states feeling well with no chest pain, but he did mentioned he was feeling nauseated and had a vomiting episode overnight and one in the morning. Patient had no spikes in fever and WBC downtrending, We recommended to continue heparin drip and will most likely due heart cath tomorrow.NPO after midnight and hold heparin in morning for left heart cath tomorrow terrie. 09/02/2024: Patient was seen and examined at the bedside. Blood pressure stable. Labs showed hemoglobin stable. Chemistry panel was unremarkable. Patient underwent left heart catheterization which showed left main and severe multivessel CAD. Patient is not a good candidate for open heart surgery and bypass. Patient appears to be a poor candidate for bypass and stent placement. Medical/conservative management recommended with aspirin, statin and low-dose beta-mary with LAYNE/ARB because of LV dysfunction and short term and intermittent prognosis is extremely poor. Patient himself did not want to opt for heart surgery. Primary team was updated. Follow-up on echocardiogram to evaluate cardiac functions. Patient's family needs to be updated regarding the current condition. we started patient on carvedilol 3.125 mg twice daily, Lasix 40 mg p.o. daily and Entresto 1 twice daily. All labs and orders were reviewed. 09/03/2024: Patient was seen and examined at the bedside. Labs unremarkable. Chemistry panel showed BUN 20 and creatinine 1.4. Echocardiogram showed EF 25%. Recommended to discharge the patient on aspirin 81 mg once a day daily, Plavix 75 mg once a day daily, carvedilol 3.125 p.o. twice daily, Lasix 40 mg once a day and Entresto 1 tablet twice daily. Patient is stable for discharge from cardiology standpoint. All labs and orders were reviewed. Exam Vital Signs Temp Pulse Resp BP Pulse Ox O2 Del Method O2 Flow Rate 97.6 F 104 H 17 111/78 94 L Room Air 0 09/03/24 12:00 09/03/24 12:00 09/03/24 12:00 09/03/24 12:00 09/03/24 12:00 09/03/24 12:00 09/02/24 16:00 Narrative Exam GENERAL APPEARANCE: Patient is AOx3, in no acute distress. HEENT: NC, AT. MMM. EOMI, clear conjunctiva, oropharynx clear. NECK: Supple without lymphadenopathy. No stiffness or restricted ROM. HEART: Regular rate and regular rhythm, normal S1/S2, no m/r/g LUNGS: CTAB, moving air well. No crackles or wheezes are heard. ABDOMEN: Soft, nontender, nondistended with good bowel sounds heard. EXTREMITIES: 1+ pitting edema noticed on both lower extremities. NEUROLOGICAL: Grossly nonfocal. Alert and oriented, moving all 4 extremities. CN not formally tested but appear grossly intact. Skin: Warm and dry without any rash. Psych: Appropriate mood and affect Objective Labs 09/03/24 08:25 09/03/24 08:25 Labs: Laboratory Results - last 24 hr 09/03/24 08:25 WBC 7.0 RBC 4.86 Hgb 14.6 Hct 43.3 MCV 89 MCH 30.0 MCHC 33.7 RDW Std Deviation 46.6 H Plt Count 194 Neut % (Auto) 62 Lymph % (Auto) 26 Tillman % (Auto) 9 Eos % (Auto) 2 Baso % (Auto) 0 Neut # (Auto) 4.3 Lymph # (Auto) 1.8 Tillman # (Auto) 0.7 Eos # (Auto) 0.1 Baso # (Auto) 0.0 Immature Gran # (Auto) 0.03 H Absolute Nucleated RBC 0.00 Immature Gran % 0 Nucleated RBC % 0 Sodium 136 Potassium 4.4 Chloride 101 Carbon Dioxide 28.9 Anion Gap 6 L BUN 20 Creatinine 1.4 H Estim Creat Clear Calc 65.1 eGFR 53 L BUN/Creatinine Ratio 14 Glucose 269 H Calculated Osmolality 283 Calcium 9.6 Corrected Calcium 9.6 Magnesium 2.0 Total Bilirubin 0.5 AST 13 ALT 11 Alkaline Phosphatase 63 Total Protein 7.5 Albumin 4.1 Globulin 3.4 Albumin/Globulin Ratio 1.2 Quality Measures Quality Measures VTE prophylaxis Advance care planning discussed with:: patient Assessment & Plan Assessment Current Active Medications: Generic Name Dose Route Start Last Admin Trade Name Darya PRN Reason Stop Dose Admin Acetaminophen 650 mg 08/30/24 13:21 08/30/24 21:41 Acetaminophen 325 Mg Tablet PO 09/29/24 13:20 650 mg Q6H PRN Administration pain 1-3 and Fever >100.4 Hydrocodone Bitart/Acetaminophen 1 tab 08/30/24 13:21 Hydrocodone/Apap 5/325 Tablet PO 09/04/24 13:20 Q4HR PRN PAIN SCALE 4-10(Mod-Sev Aspirin 81 mg 08/31/24 09:00 09/03/24 08:00 Aspirin Ec 81 Mg Tabec PO 09/30/24 08:59 81 mg QDAY RASHID Administration Atorvastatin Calcium 40 mg 08/30/24 21:00 09/02/24 20:05 Atorvastatin Calcium 20 Mg Tablet PO 09/29/24 20:59 40 mg HS RASHID Administration Azithromycin 500 mg 08/30/24 14:00 09/03/24 13:25 Azithromycin 250 Mg Tablet PO 09/06/24 13:59 500 mg QDAY@1400 RASHID Administration Carvedilol 3.125 mg 09/02/24 17:30 09/03/24 08:01 Carvedilol 3.125 Mg Tablet PO 10/02/24 17:29 3.125 mg BIDWM RASHID Administration Clopidogrel Bisulfate 75 mg 09/03/24 11:00 09/03/24 11:13 Clopidogrel Bisulfate 75 Mg Tablet PO 10/03/24 10:59 75 mg QDAY RASHID Administration Dextrose 25 ml 08/30/24 13:21 Dextrose 50%-Water Inj 50 Ml Syringe IV 09/29/24 13:20 Q15MIN PRN BG 50-70 responsive npo pt Dextrose 50 ml 08/30/24 13:21 Dextrose 50%-Water Inj 50 Ml Syringe IV 09/29/24 13:20 Q15MIN PRN BG <50 OR BG <70 & pt unresponsive Furosemide 40 mg 09/03/24 09:00 09/03/24 08:00 Furosemide 40 Mg Tablet PO 10/03/24 08:59 40 mg QDAY RASHID Administration Glucagon 1 mg 08/30/24 13:21 Glucagon Inj 1 Mg Vial IM Q15MIN PRN BG <70, and no IV access Heparin Sodium (Porcine) 5,000 unit 09/02/24 22:00 09/03/24 13:26 Heparin Sod Inj 5000 Unit/Ml Vial SC 09/16/24 21:59 5,000 unit Q8HR RASHID Administration Ceftriaxone Sodium/Dextrose 50 mls @ 100 mls/hr 08/30/24 13:44 09/03/24 13:25 Rocephin/D5w 1gm Iv Premix IV 09/06/24 13:43 100 mls/hr QDAY@1400 RASHID Administration Insulin Human Lispro 0 unit 08/30/24 17:00 09/03/24 11:13 Insulin Lispro (Admelog) 1 Unit/0.01 Ml Unit SC 09/29/24 16:59 4 unit ACHS RASHID Administration Protocol Ondansetron HCl 4 mg 08/30/24 13:21 09/02/24 07:26 Ondansetron Inj 2 Mg/Ml Inj 2 Ml IV 09/29/24 13:20 4 mg Q6H PRN Administration NAUSEA OR VOMITING Protocol Sacubitril/Valsartan 1 tab 09/02/24 21:00 09/03/24 08:00 Sacubitril 24 Mg/Valsartan 26 Mg Tablet PO 10/02/24 20:59 1 tab BID RASHID Administration Sennosides 1 tab 08/30/24 13:21 Senna Tablet PO 09/29/24 13:20 QDAY PRN constipation Protocol Plan This 74-year-old male with past medical history of DM2, glaucoma, triple-vessel disease (s/p stents 2018), hyperlipidemia, dementia, and hypertension was admitted to the hospital on 08/30/2024 for sepsis secondary to UTI versus community-acquired pneumonia, NSTEMI type I versus type II, and MART. # Triple-vessel disease including left main and severe multivessel CAD per cardiac cath 2023 # Acute NSTEMI type I # History of hyperlipidemia ? Patient presented with weakness & complained of nausea and vomiting and was found to have fever, leukocytosis and UTI on urinalysis. Patient met 3/4 SIRS criteria with tachycardia, leukocytosis and fever. Chest x-ray did not show any pneumonia. CT chest abdomen pelvis showed mild pneumonia left base. Procalcitonin and lactic acidosis was seen on admission. ?EKG showed sinus tachycardia rate 115 bpm, evidence of old inferior wall CO, QRS complex in inferior leads, poor R wave progression in precordial leads possible anterior wall CO. No ST depression. ? Left heart catheterization in 2019 showed total occlusion of LAD, RCA and severe diffuse stenosis of distal circumflex artery. ? Morning labs revealed improvement in white count, stable hemoglobin at 12.2. Mild thrombocytopenia platelet 133. Chemistry panel showed slight improvement in creatinine 1.4 today. A1c 7.3. Troponin down trended from 16.4->13.8. Echo showed Normal LV size. severe global hypokinesis LVEF 25% Normal RV size and function. Trace MR, TR. Plan: ? Patient stable from cardiology standpoint to be discharged ? Added Plavix 75 mg once a day daily we started patient on carvedilol 3.125 mg twice daily, Lasix 40 mg p.o. daily and Entresto 1 twice daily. ? Patient underwent left heart catheterization which showed left main and severe multivessel CAD. Patient is not a good candidate for open heart surgery and bypass. Patient appears to be a poor candidate for bypass and stent placement. Medical/conservative management recommended with aspirin, statin and low-dose beta-mary with LAYNE/ARB because of LV dysfunction and short term and intermittent prognosis is extremely poor. ? Continue aspirin and statin therapy ? Continue IV antibiotic therapy ? Replete electrolytes as necessary ? Keep magnesium above 2 and potassium above 4 ? Daily labs # Sepsis likely due to urinary tract infection and community-acquired pneumonia # Lactic acidosis type B # MART likely prerenal underlying sepsis # History of hypertension # History of diabetes # Leukocytosis # History of dementia Rest of the management as per primary care team. Thank you very much for consulting cardiology team. Patient underwent left heart catheterization which showed left main and severe multivessel CAD. Patient is not a good candidate for open heart surgery and bypass. Patient appears to be a poor candidate for bypass and stent placement. Medical/conservative management recommended with aspirin, statin and low-dose beta-mary with LAYNE/ARB because of LV dysfunction and short term and intermittent prognosis is extremely poor. Primary team updated. Added Plavix with the current regime and stable from cardiology standpoint for discharge. Plan of care discussed with dinkey motor operator, Dr. Jose Oneal MD, PGY 2
--- NOTE | 2024-09-03 14:58 | PC.SS ---
Addendum entered and electronically signed by MOON Mcdowell 09/03/24 15:25: DIRECTOR ONLINE MARKETING received confirmation that authorization has been granted for transport. Transport time will be 06:00 pm. DIRECTOR ONLINE MARKETING updated bedside nurse, SNF and patient. Original Note: DIRECTOR ONLINE MARKETING informed by [place] transport authorization remains pending. DIRECTOR ONLINE MARKETING contacted [facility] staff, [place]; to obtain update on status of transport authorization. [facility] stated that authorization remains pending. [facility] to expedite request.
== END 2024-09-03 19:41 | disposition skilled nursing facility (03) | DRG 871 ==
LOC: SERX 13:44 → SERHOLD 14:14 → S2NX 16:42
PROVIDERS: Internal Medicine Cardiovascular Disease; Student in an Organized Health Care Education/Training Program; Admitting Provider Internal Medicine; Emergency Provider Emergency Medicine; PCP Family Medicine; Visit Provider Internal Medicine
PROC: 4A023N7 Measurement of Cardiac Sampling and Pressure, Left Heart, Percutaneous Approach (ICD-10-PCS; principal; 2024-09-02 07:30)
DX: A41.9 Sepsis, unspecified organism (principal); I21.4 Non-ST elevation (NSTEMI) myocardial infarction; J18.9 Pneumonia, unspecified organism; N39.0 Urinary tract infection, site not specified; N17.9 Acute kidney failure, unspecified; E87.20 Acidosis, unspecified; I50.20 Unspecified systolic (congestive) heart failure; E11.42 Type 2 diabetes mellitus with diabetic polyneuropathy; I25.10 Atherosclerotic heart disease of native coronary artery without angina pectoris; F03.90 Unspecified dementia, unspecified severity, without behavioral disturbance, psychotic disturbance, mood disturbance, and anxiety; E11.65 Type 2 diabetes mellitus with hyperglycemia; D64.9 Anemia, unspecified; I25.2 Old myocardial infarction; E78.00 Pure hypercholesterolemia, unspecified; D69.6 Thrombocytopenia, unspecified; I11.0 Hypertensive heart disease with heart failure; Z95.1 Presence of aortocoronary bypass graft; Z74.01 Bed confinement status; Z79.84 Long term (current) use of oral hypoglycemic drugs; Z79.899 Other long term (current) drug therapy
CPT/HCPCS: 36415; 71045; 71260; 74177; 80048; 80053; 81001; 83036; 83605; 83735; 84100; 84145; 84484; 85025; 85610; 85730; 87040; 87081; 87400; 87634; 87811; 93005; 93306; 96361; 96365; 96367; 96372; 96374; 99152; 99291; A4649; C1769; C1887; C1894; J0171; J0461; J0696; J1643; J1644; J1815; J2250; J2310; J2371; J2405; J2543; J3010; J3475; J3490; J7030; J7040; Q9967; A9270; J2305

== ENCOUNTER → 2025-02-12 | Outpatient (CLI) | payer MEDICARE, MEDICAID, SELFPAY ==
--- NOTE | 2025-02-12 14:00 | ECHO_ITS ---
Transthoracic Echo Report Ht (in): 74 Wt (lb): 253 Exam Location: Echo Lab Status: [employer] Supervisor: KEENAN Boothe^^^^ Indications: Procedure Performed: BP: / HR: MEASUREMENTS (Male / Female) Normal Values 2D ECHO LV Diastolic Diameter PLAX 4.2 cm 4.2 - 5.9 / 3.9 - 5.3 cm LV Systolic Diameter PLAX 3.3 cm IVS Diastolic Thickness 1.3 cm 0.6 - 1.0 / 0.6 - 0.9 cm LVPW Diastolic Thickness 1.0 cm 0.6 - 1.0 / 0.6 - 0.9 cm LV Relative Wall Thickness 0.5 LVOT Diameter 2.0 cm Aortic Root Diameter 3.7 cm LA Systolic Diameter LX 5.0 cm 3.0 - 4.0 / 2.7 - 3.8 cm Ascending Aorta Diameter 3.0 cm DOPPLER AV Peak Velocity 138.0 cm/s AV Peak Gradient 7.6 mmHg AV Mean Gradient 5.0 mmHg AV Velocity Time Integral 36.1 cm LVOT Peak Velocity 75.4 cm/s LVOT Peak Gradient 2.3 mmHg LVOT Velocity Time Integral 17.7 cm AV Area Cont Eq vti 1.5 cm? AV Area Cont Eq pk 1.7 cm? MV Area PHT 4.7 cm? Mitral E Point Velocity 66.3 cm/s Mitral A Point Velocity 50.4 cm/s Mitral E to A Ratio 1.3 LV E' Lateral Velocity 6.1 cm/s Mitral E to LV E' Lateral Ratio 10.9 LV E' Septal Velocity 5.3 cm/s Mitral E to LV E' Septal Ratio 12.4 TR Peak Velocity 212.0 cm/s TR Peak Gradient 18.0 mmHg PV Peak Velocity 94.7 cm/s PV Peak Gradient 3.6 mmHg RVOT Peak Velocity 76.9 cm/s FINDINGS Left Ventricle Left ventricle is mildly dilated with evidence of anterior septal apical akinesis with mild global hypokinesis with moderate to severe left ventricle systolic dysfunction ejection fraction approximately 35%. Right Ventricle The right ventricle is normal in size and systolic function. The estimated right ventricular systolic pressure, 25 mmHg. Left Atrium The left atrial cavity size is mildly increased. Right Atrium The right atrium is normal by two-dimensional imaging, color flow and Doppler imaging with no structural abnormalities, no thrombus formation present. Atrial Septum The interatrial septum appears normal with no evidence of a shunt. Aorta The aorta is normal by two-dimensional, color flow and Doppler interrogation. Mitral Valve Mild mitral regurgitation. Mild mitral annular calcification. Mild thickening of the mitral valve leaflets. Aortic Valve Aortic valve sclerosis. Tricuspid Valve There is mild tricuspid valve regurgitation. Pulmonic Valve Mild pulmonic valve regurgitation. Vessels The pulmonary artery appears normal. The inferior vena cava pulmonary and hepatic veins appear normal. Pericardium There is a tiny, hemodynamically insignificant pericardial effusion. CONCLUSIONS Indication: CHF Dilated left ventricle evidence of anteroseptal apical akinesis with moderate to severe LV dysfunction suggestive of ischemic cardiomyopathy with previous anteroseptal myocardial infarction. Left ventricle ejection fraction approximately 35%. Left atrium mildly dilated. Right ventricle size and function normal. Aortic valve sclerosis no stenosis. Mild mitral and tricuspid regurgitation. Lor Carpenter (Electronically Signed) Final Date: 16 Feb 2025 12:22
== END | disposition home or self-care (01) ==
PROVIDERS: PCP Internal Medicine Cardiovascular Disease; Referring Provider Internal Medicine Cardiovascular Disease; Visit Provider Internal Medicine Cardiovascular Disease
DX: I08.3 Combined rheumatic disorders of mitral, aortic and tricuspid valves (principal)
CPT/HCPCS: 93306